=== PATIENT | female | born 1995 | race Caucasian/White ===

== ENCOUNTER 2017-04-05 15:06 | Emergency (ER) | payer MEDICAID, OTHER ==
[2017-04-05 15:16] VITALS: BP 135/71
--- NOTE | 2017-04-05 16:18 | ER Document Report ---
ED GI/ - General Chief Complaint: Vaginal Bleeding Stated Complaint: VAGINAL BLEEDING Time Seen by Provider: 04/05/17 15:43 Mode of Arrival: Ambulatory Information source: Patient Notes: 22-year-old female presents to ED for vaginal bleeding, vaginal discharge, and pelvic pain. She states she was seen in [place] on the night and was diagnosed with Trichomonas and treated with Flagyl. She was given 7 days worth of pills to take twice a day and she still has 4 pills left. She states she called the doctor in [place] and they told her to come to the emergency room where she was 7 vaginal discharge and bleeding. She is 16 weeks . TRAVEL OUTSIDE OF THE U.S. 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 Menstrual period history: Sexual history: STD exposure Associated symptoms: Vaginal discharge, Other - Vaginal bleeding pelvic pain and Exacerbated by: Denies Relieved by: Denies Similar symptoms previously: Yes Recently seen / treated by doctor: Yes - Related Data Allergies/Adverse Reactions: acetaminophen [From Vicodin] Adverse Reaction (Intermediate, Verified 12/01/15 11:30) Hives hydrocodone bitartrate [From Vicodin] Adverse Reaction (Intermediate, Verified 12/01/15 11:30) Hives Past Medical History - General Information source: Patient - Social History Smoking Status: Never Smoker Cigarette use (# per day): No Chew tobacco use (# tins/day): No Smoking Education Provided: No Frequency of alcohol use: None Drug Abuse: None Lives with: Spouse/Significant other Family History: Reviewed & Not Pertinent Patient has suicidal ideation: No - Past Medical History Cardiac Medical History: Reports: None Pulmonary Medical History: Reports: Hx Asthma EENT Medical History: Reports: None Neurological Medical History: Reports: None Endocrine Medical History: Reports: None Renal/ Medical History: Reports: Hx Pelvic Inflammatory Disease Malignancy Medical History: Reports: None GI Medical History: Reports: None Musculoskeltal Medical History: Reports None Skin Medical History: Reports None Psychiatric Medical History: Reports: None Traumatic Medical History: Reports: None Infectious Medical History: Reports: None Surgical Hx: Negative Past Surgical History: Reports: None - Immunizations Immunizations up to date: Yes Hx Diphtheria, Pertussis, Tetanus Vaccination: Yes Review of Systems - Review of Systems Constitutional: No symptoms reported EENT: No symptoms reported Cardiovascular: No symptoms reported Respiratory: No symptoms reported Gastrointestinal: No symptoms reported Genitourinary: No symptoms reported Female Genitourinary: , Vaginal discharge, Vaginal bleeding, Other - Pelvic pain Musculoskeletal: No symptoms reported Skin: No symptoms reported Hematologic/Lymphatic: No symptoms reported Neurological/Psychological: No symptoms reported -: Yes All other systems reviewed and negative Physical Exam - Vital signs Vitals: Temp Pulse Resp BP Pulse Ox 98.7 F 72 16 135/71 H 100 04/05/17 15:13 04/05/17 15:13 04/05/17 15:13 04/05/17 15:13 04/05/17 15:13 Interpretation: Normal - General General appearance: Appears well, Alert - HEENT Head: Normocephalic, Atraumatic Eyes: Normal Pupils: PERRL - Respiratory Respiratory status: No respiratory distress Chest status: Nontender Breath sounds: Normal Chest palpation: Normal - Cardiovascular Rhythm: Regular Heart sounds: Normal auscultation Murmur: No - Abdominal Inspection: Normal Distension: No distension Bowel sounds: Normal Tenderness: Nontender Organomegaly: No organomegaly - Genitourinary External exam: Normal Speculum exam: Cervix closed, Cervix open, Vaginal discharge Vaginal bleeding: Mild Bimanuel exam: Normal - Back Back: Normal, Nontender - Extremities General upper extremity: Normal inspection, Nontender, Normal color, Normal ROM , Normal temperature General lower extremity: Normal inspection, Nontender, Normal color, Normal ROM , Normal temperature, Normal weight bearing. No: Fareed's sign - Neurological Neuro grossly intact: Yes Cognition: Normal Orientation: AAOx4 Tyra Coma Scale Eye Opening: Spontaneous [place] Coma Scale Verbal: Oriented Tyra Coma Scale Motor: Obeys Commands Tyra Coma Scale Total: 15 Speech: Normal Motor strength normal: LUE, RUE, LLE, RLE Sensory: Normal - Psychological Associated symptoms: Normal affect, Normal mood - Skin Skin Temperature: Warm Skin Moisture: Dry Skin Color: Normal Course - Re-evaluation Re-evalutation: 04/05/17 16:31 Patient states she was seen by her [employer] on March 28 and was treated for trichomonas with Flagyl twice daily for 7 days. It is now the 17th and she still has 4 pills left. She states she has been taking them about every other day but once a day because she continues to forget them. She states she called [facility] and they told her to come to the emergency room to get rechecked out. She states when she was at the [employer] last week she had vaginal bleeding and they checked her blood and she was a negative and she was given a RhoGam shot. 04/05/17 22:02 At 1700 this patient left the floor according to the nurses. When I came out of another patient's room they tell me that the patient had left and they did not understand why. At 1730 when I got the results of her wet mount I called her home phone and talked with her. She stated that she asked 1 of the nurses how much longer it was going to be and and she states that there was so rude to her that she felt she had to get up and leave for her and her patient safety. I asked the patient to return to the ED so that I could get a heart tone and go over her test results with her. And she stated she would be right back. She did not return to the emergency room by 1830. I spoke with all the nurse and staff after this conversation and the staff stated that 1 of the nurses had walked by the room and she had asked them how long it would be and she told them that she was waiting for test results and it should not be much longer. They stated that no one was removed to this young lady and that it was several minutes later that the patient got up and stormed out of the emergency room not speaking to anyone or saying any reason for her leaving. Patient was told that her trichomonas was negative on this new test and that she needed to return to the emergency room for further instructions and have her heart tones during my conversation with her patient states that she was given a return to her primary [employer] tomorrow. - Vital Signs Vital signs: Temp Pulse Resp BP Pulse Ox 98.7 F 72 16 135/71 H 100 04/05/17 15:13 04/05/17 15:13 04/05/17 15:13 04/05/17 15:13 04/05/17 15:13 - Laboratory Laboratory results interpreted by me: 04/05/17 15:45 Urine Blood LARGE H Ur Leukocyte Esterase SMALL H Discharge - Discharge Clinical Impression: Vaginal bleeding before 22 weeks gestation Disposition: ELOPED
[2017-04-05 17:44] LABS: APPEARANCE,URINE CLEAR; BILIRUBIN,URINE NEGATIVE (NEGATIVE); GLUCOSE, URINE NEGATIVE (NEGATIVE); KETONES,URINE NEGATIVE (NEGATIVE); LEUKOCYTE ESTERASE,URINE SMALL (NEGATIVE); NITRITE,URINE NEGATIVE (NEGATIVE); PROTEIN,URINE NEGATIVE (NEGATIVE); URINE SPECIFIC GRAVITY 1.002; UROBILINOGEN,URINE NEGATIVE mg/dL (<2.0)
[2017-04-05 18:14] LABS: CHLAM PCR NOT DETECTED (NOT DETECT)
== END 2017-04-05 17:00 | disposition left against medical advice (07) ==
LOC: ER 15:06
DX: O46.92 Antepartum hemorrhage, unspecified, second trimester (principal); N89.8 Other specified noninflammatory disorders of vagina; R10.2 Pelvic and perineal pain; Z3A.16 16 weeks gestation of pregnancy
CPT/HCPCS: 81001; 87086; 87088; 87210; 87491; 87591; 99281

== ENCOUNTER 2017-04-16 14:14 | Emergency (ER) | payer OTHER ==
--- NOTE | 2017-04-16 14:40 | ER Document Report ---
ED GI/ - General Chief Complaint: Vaginal Bleeding Stated Complaint: POSSIBLE MISCARRIAGE Time Seen by Provider: 04/16/17 14:25 Notes: The patient is a 22-year-old female, , 17 weeks by prior ultrasound , presents with increased vaginal bleeding and lower abdominal cramping over the past 3 days. She saw her OB at [facility] yesterday and she was told that her fetus did not have a heart beat. She was scheduled for a D&C in [place] on Apr.26. However, today she delivered the fetus while being transported to the ED by EMS. Patient still having lower abdominal cramping and intermittent vaginal bleeding, but she denies syncope, nausea, vomiting, chest pain, shortness of breath, diarrhea, constipation or urinary symptoms. TRAVEL OUTSIDE OF THE U.S. IN LAST 30 DAYS: No - Related Data Allergies/Adverse Reactions: acetaminophen [From Vicodin] Adverse Reaction (Intermediate, Verified 12/01/15 11:30) Hives hydrocodone bitartrate [From Vicodin] Adverse Reaction (Intermediate, Verified 12/01/15 11:30) Hives Past Medical History - General Information source: Patient - Social History Smoking Status: Unknown if Ever Smoked Family History: Reviewed & Not Pertinent Pulmonary Medical History: Reports: Hx Asthma Renal/ Medical History: Reports: Hx Pelvic Inflammatory Disease. Denies: Hx Peritoneal Dialysis - Immunizations Immunizations up to date: Yes Hx Diphtheria, Pertussis, Tetanus Vaccination: Yes Review of Systems - Review of Systems Notes: REVIEW OF SYSTEMS: CONSTITUTIONAL: -fevers, -chills EENT: -eye pain, -difficulty swallowing, -nasal congestion CARDIOVASCULAR:-chest pain, -syncope. RESPIRATORY: -cough, -SOB GASTROINTESTINAL: +abdominal pain, - nausea, -vomiting, -diarrhea GENITOURINARY: -dysuria, -hematuria, +vaginal bleeding MUSCULOSKELETAL: -back pain, -neck pain SKIN: -rash or skin lesions. HEMATOLOGIC: -easy bruising or bleeding. LYMPHATIC: -swollen, enlarged glands. NEUROLOGICAL: -altered mental status or loss of consciousness, -headache, - neurologic symptoms PSYCHIATRIC: -anxiety, -depression. ALL OTHER SYSTEMS REVIEWED AND NEGATIVE. Physical Exam - Vital signs Vitals: Temp Pulse Resp BP Pulse Ox 98.6 F 67 16 131/62 H 100 04/16/17 14:22 04/16/17 14:22 04/16/17 14:22 04/16/17 14:22 04/16/17 14:22 - Notes Notes: PHYSICAL EXAMINATION: GENERAL: Well-appearing, well-nourished and in no acute distress. HEAD: Atraumatic, normocephalic. EYES: Pupils equal round and reactive to light, extraocular movements intact, sclera anicteric, conjunctiva are normal. ENT: nares patent, oropharynx clear without exudates. Moist mucous membranes. NECK: Normal range of motion, supple without lymphadenopathy LUNGS: Breath sounds clear to auscultation bilaterally and equal. No wheezes rales or rhonchi. HEART: Regular rate and rhythm without murmurs ABDOMEN: Soft, nontender, normoactive bowel sounds. No guarding, no rebound. No masses appreciated. : Fetus on bed with umbilical cord attached to intact placenta. No active bleeding. EXTREMITIES: Normal range of motion, no pitting or edema. No cyanosis. NEUROLOGICAL: Cranial nerves grossly intact. Normal speech, normal gait. Normal sensory and motor exams. PSYCH: Normal mood, normal affect. SKIN: Warm, Dry, normal turgor, no rashes or lesions noted. Course - Re-evaluation Re-evalutation: Patient presents in the ER with an active miscarriage of her 17 week fetus. She had a confirmed ultrasound yesterday at her OB that showed no heart tones. Patient is hemodynamically stable after 500 mL normal saline and she is having no active bleeding after she delivered the fetus and intact placenta. Spoke with Dr. Giraldo (OB) and she has no further recommendations other than following-up with her OB this week for a recheck. Given return precautions and she understands. 04/16/17 14:56 I spoke with family and they are declining chromosomal analysis at this time. They would like to take the confirmed demised fetus home. certificate filled out in case she would like to bring the fetus to a home for cremation. - Vital Signs Vital signs: Temp Pulse Resp BP Pulse Ox 98.6 F 68 16 122/49 L 100 04/16/17 14:22 04/16/17 16:43 04/16/17 16:43 04/16/17 16:43 04/16/17 16:43 Discharge - Discharge Clinical Impression: Complete miscarriage Condition: Stable Disposition: HOME, SELF-CARE Additional Instructions: A small amount of vaginal bleeding and cramping is normal at this time. If he continues to have worsening vaginal bleeding, lightheadedness or any other concerns, return to the ER. Follow-up with your OB this week to have your symptoms rechecked. Motrin or Advil for pain and Keaau for severe pain. FOLLOW-UP CARE: If you have been referred to a physician for follow-up care, call the physician s office for an appointment as you were instructed or within the next two days. If you experience worsening or a significant change in your symptoms (very heavy bleeding with large clots of blood, passage of tissue, more severe abdominal / pelvic pain or cramping, feeling faint or severe weakness, fever, etc.), notify the physician immediately or return to the Emergency Department at any time for re-evaluation. OBSTETRIC-GYNECOLOGIC (OB-VESSEL SLAGMAN) PHYSICIANS IN [place]: The [facility] [address] [place], [place] [phone] [facility] [address] [place] [address] [phone] For active duty and dependents diagnosed with a threatened or miscarriage, you should follow up in the following manner: Standard patients who have a local civilian provider should follow up with that provider. Patients of the Family Practice Clinic should call your Team Nurse at 8: 00 am the following morning for further instructions. If you are neither a Standard patient nor a patient of the Family Practice Clinic, you should follow up at the [facility] ([facility]) . Patients already enrolled in the [facility] OB Clinic, Prime patients not assigned to the Family Practice Clinic, and Active Duty patients not assigned to Family Practice Clinic should report to the [facility] Lab at 8:00 am the next morning that the [facility] OB Clinic is open and then you will be seen in the OB Clinic at 11:00 am. Prescriptions: Hydrocodone/Acetaminophen [Keaau 5-325 mg Tablet] 1 tab PO Q6H PRN #8 tablet PRN Reason: Oxycodone HCl/Acetaminophen [Percocet 5-325 mg Tablet] 1 - 2 tab PO Q4H PRN #8 tablet PRN Reason: Referrals: TANNER GIRALDO MD [ACTIVE STAFF] - Follow up as needed
[2017-04-16] MEDS ORDERED: HYDROCODONE/ACETAMINOPHEN 5-325 MG TABLET PO ONE (16:09)
[2017-04-16] MEDS ORDERED: OXYCODONE-ACETAMINOPHEN 5-325 MG TABLET PO ONE (16:17)
[2017-04-16 16:45] VITALS: BP 122/49
== END 2017-04-16 16:45 | disposition home or self-care (01) ==
LOC: ER 14:14
DX: O03.9 Complete or unspecified spontaneous abortion without complication (principal); O46.92 Antepartum hemorrhage, unspecified, second trimester; R10.30 Lower abdominal pain, unspecified; Z3A.17 17 weeks gestation of pregnancy
CPT/HCPCS: 99284

== ENCOUNTER 2017-06-18 16:25 | Emergency (ER) | payer OTHER ==
[2017-06-18 16:30] VITALS: BP 121/78
--- NOTE | 2017-06-18 17:19 | ER Document Report ---
HPI - HPI Patient complains to provider of: Chlamydia exposure, urinary frequency Onset: Last week Onset/Duration: Persistent Quality of pain: Achy Pain Level: 1 Context: Patient presents complaining of exposure to chlamydia and would like to be treated. Patient also reports urinary frequency although denies any dysuria. Patient denies any vaginal bleeding or discharge. Patient denies any fever. Associated Symptoms: Other - Concerned about STD Exacerbated by: Denies Relieved by: Denies Similar symptoms previously: No Recently seen / treated by doctor: No - ROS ROS below otherwise negative: Yes Systems Reviewed and Negative: Yes All other systems reviewed and negative - CONSTITUTIONAL Constitutional: DENIES: Fever, Chills - GASTROINTESTINAL Gastrointestinal: DENIES: Abdominal Pain, Nausea, Patient vomiting - URINARY Urinary: REPORTS: Frequency. DENIES: Dysuria - REPRODUCTIVE Reproductive: DENIES: :, Abnormal bleeding / discharge - MUSCULOSKELETAL Musculoskeletal: DENIES: Back Pain - DERM Skin Color: Normal Skin Problems: None Past Medical History - General Information source: Patient - Social History Smoking Status: Never Smoker Frequency of alcohol use: None Drug Abuse: None Occupation: None Family History: Reviewed & Not Pertinent Pulmonary Medical History: Reports: Hx Asthma Renal/ Medical History: Reports: Hx Pelvic Inflammatory Disease. Denies: Hx Peritoneal Dialysis GI Medical History: Reports: Hx Crohn's Disease Surgical Hx: Negative - Immunizations Immunizations up to date: Yes Hx Diphtheria, Pertussis, Tetanus Vaccination: Yes Vertical Provider Document - CONSTITUTIONAL Agree With Documented VS: Yes Exam Limitations: No Limitations General Appearance: WD/WN, No Apparent Distress - INFECTION CONTROL TRAVEL OUTSIDE OF THE [place].S. IN LAST 30 DAYS: No - HEENT HEENT: Atraumatic, Normocephalic - NECK Neck: Normal Inspection - RESPIRATORY Respiratory: Breath Sounds Normal, No Respiratory Distress O2 Sat by Pulse Oximetry: 100 - CARDIOVASCULAR Cardiovascular: Regular Rate, Regular Rhythm - GI/ABDOMEN Gastrointestinal: Abdomen Soft, Abdomen Non-Tender, No Organomegaly, Normal Bowel Sounds - REPRODUCTIVE Female Genitalia: Normal Inspection. negative: CMT, Adnexal Pain-Right, Adnexal Pain-Left Notes: no vaginal discharge - BACK Back: Normal Inspection. 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 Patient states she has been here 4 hours in wants to leave. Patient does not want to wait for urinalysis results. 06/18/17 19:50 Provider called patient to advise her of urinalysis results. Patient advised that urine culture will be ordered and that we will call if she needs any different treatment. - Vital Signs Vital signs: Temp Pulse Resp BP Pulse Ox 98.5 F 75 20 121/78 100 06/18/17 16:29 06/18/17 16:29 06/18/17 16:29 06/18/17 16:29 06/18/17 16:29 - Laboratory Laboratory results interpreted by me: 06/18/17 20:41 Labs- Entire Visit 06/18/17 06/18/17 06/18/17 18:05 18:05 18:05 Urine Color YELLOW Urine Appearance SLIGHTLY-CLOUDY Urine pH 5.0 Ur Specific [place] 1.030 Urine Protein 30 H Urine Glucose (UA) NEGATIVE Urine Ketones TRACE H Urine Blood NEGATIVE Urine Nitrite NEGATIVE Urine Bilirubin NEGATIVE Urine Urobilinogen 2.0 H Ur Leukocyte Esterase TRACE H Urine WBC (Auto) 6 Urine RBC (Auto) 1 Urine Bacteria (Auto) TRACE Squamous Epi Cells Auto 6 Urine Mucus (Auto) FEW Urine Ascorbic Acid NEGATIVE Urine HCG, Qual NEGATIVE Trichomonas (Wet Prep) NO TRICHOMONAS SEEN Vaginal WBC RARE WBCS SEEN Vaginal Yeast NO YEAST SEEN Chlamydia DNA (PCR) NOT DETECTED N.gonorrhoeae DNA (PCR) NOT DETECTED Discharge - Discharge Clinical Impression: Exposure to chlamydia, Urinary frequency Disposition: ELOPED
[2017-06-18] MEDS ORDERED: AZITHROMYCIN 250 MG TABLET PO ONE (18:08)
[2017-06-18] MEDS ORDERED: CEFTRIAXONE INJ 250 MG VIAL IM ONE (18:08)
[2017-06-18] MEDS ORDERED: LIDOCAINE 1% INJ-PF (10 MG/ML) 30 ML SDV INJ ONE (18:08)
[2017-06-18 18:49] LABS: APPEARANCE,URINE SLIGHTLY-CLOUDY; BILIRUBIN,URINE NEGATIVE (NEGATIVE); GLUCOSE, URINE NEGATIVE (NEGATIVE); KETONES,URINE TRACE mg/dL (NEGATIVE); LEUKOCYTE ESTERASE,URINE TRACE (NEGATIVE); NITRITE,URINE NEGATIVE (NEGATIVE); PROTEIN,URINE 30 mg/dL (NEGATIVE)
== END 2017-06-18 19:12 | disposition left against medical advice (07) ==
LOC: ER 16:25
DX: Z20.2 Contact with and (suspected) exposure to infections with a predominantly sexual mode of transmission (principal); R35.0 Frequency of micturition
CPT/HCPCS: 99281; 96372; 87086; 87210; 81025; 87088; 81001; 87186; 87491; 87591; J3490; J0696

== ENCOUNTER 2017-09-22 14:20 | Emergency (ER) | payer OTHER ==
--- NOTE | 2017-09-22 14:42 | ER Document Report ---
ED Medical Screen (RME) - General Chief Complaint: Vaginal Bleeding Stated Complaint: VAGINAL BLEEDING<7 WKS Time Seen by Provider: 09/22/17 14:37 Notes: RME DISCLOSURE I have seen this patient as part of a Rapid Medical Evaluation and, if applicable, placed any initially appropriate orders. The patient will be seen and fully evaluated, including a full history and physical exam, by a provider ( in Main ED or Fast Track) when a room becomes available. 22-year-old female approximately 7 weeks gestation here with complaints of vaginal bleeding that she describes as spotting and she had noticed earlier this morning when she wiped after using the bathroom. She has also had some lower abdominal cramping but she states it is pretty minimal. No fevers or chills. She has a history of miscarriage late last year and reports that her blood type is Rh-. EXAM No abdominal tenderness to palpation TRAVEL OUTSIDE OF THE U.S. IN LAST 30 DAYS: No - Related Data Allergies/Adverse Reactions: acetaminophen [From Vicodin] Adverse Reaction (Intermediate, Verified 06/18/17 16:27) Hives hydrocodone bitartrate [From Vicodin] Adverse Reaction (Intermediate, Verified 06/18/17 16:27) Hives Past Medical History Pulmonary Medical History: Reports: Hx Asthma Renal/ Medical History: Reports: Hx Pelvic Inflammatory Disease. Denies: Hx Peritoneal Dialysis GI Medical History: Reports: Hx Crohn's Disease - Immunizations Immunizations up to date: Yes Hx Diphtheria, Pertussis, Tetanus Vaccination: Yes
[2017-09-22 14:45] LABS: APPEARANCE,URINE CLEAR; BILIRUBIN,URINE NEGATIVE (NEGATIVE); COLOR,URINE STRAW; GLUCOSE, URINE NEGATIVE (NEGATIVE); KETONES,URINE NEGATIVE (NEGATIVE); LEUKOCYTE ESTERASE,URINE NEGATIVE (NEGATIVE); NITRITE,URINE NEGATIVE (NEGATIVE); PROTEIN,URINE NEGATIVE (NEGATIVE); URINE SPECIFIC GRAVITY 1.001; UROBILINOGEN,URINE NEGATIVE mg/dL (<2.0)
--- NOTE | 2017-09-22 16:58 | RADIOLOGY REPORT (SQ) ---
EXAM DESCRIPTION: U/S OB TRANSVAGINAL W/O DOP COMPLETED DATE/TIME: 09/22/2017 4:38 pm REASON FOR STUDY: 7 wks bleeding; eval miscarriage ectopic COMPARISON: None. TECHNIQUE: Transvaginal static and realtime grayscale images acquired of the pelvis. Additional christie cted spectral and color Doppler images recorded. All images stored on PACs. bHCG: Not ordered. LIMITATIONS: None. FINDINGS: There is a questionable gestational sac that may suggest gestation of 5 weeks 0 days. Que stionable yolk sac. pole was not seen. No heart motion is evident. UTERUS: 7 x 5 x 3.4 cm. It is possible that this represents septate uterus. CERVICAL LENGTH: 2.6 cm. Closed. RIGHT ADNEXA: There is a 1.3 x 1.3 by 0.8 cm complex area associated with the right ovary. The ovary measures 2.4 x 1.7 x 1.9 cm. No adnexal free fluid. No adnexal masses. LEFT ADNEXA: Normal ovary with normal vascular flow. The ovary measures 2.4 x 2.2 x 1 cm. No adnexal free fluid. No adnexal masses. FREE FLUID: None. OTHER: No other significant finding. IMPRESSION: 1. Questionable early gestational sac of 5 weeks 0 days. This correlate with an estima ann marie date of delivery of 05/25/2018. Follow-up as clinically indicated. 2. Possible septate uterus. 3. There is a small complex cyst on the right ovary. Trimester of : First - 0 to 13 weeks. TECHNICAL DOCUMENTATION: JOB ID: [id number] [employer]- All Rights Reserved Reading location - IP/workstation name: [email or web address]
--- NOTE | 2017-09-22 17:56 | ER Document Report ---
ED General - General Chief Complaint: Vaginal Bleeding Stated Complaint: VAGINAL BLEEDING<7 WKS Time Seen by Provider: 09/22/17 14:37 Mode of Arrival: Ambulatory Information source: Patient Notes: 22-year-old female 2 para 0, last normal menstrual period August 08, comes into the emergency room with light but vaginal bleeding. Patient states she had some blood on the tissue when she wiped. She denies any abdominal pain or cramping. Her first ended up with a miscarriage at 17 weeks. Type: Rh- TRAVEL OUTSIDE OF THE [place] IN LAST 30 DAYS: No - HPI Onset: Just prior to arrival Onset/Duration: Sudden Quality of pain: No pain Severity: None Pain Level: Denies Associated symptoms: denies: Chest pain, Fever, Shortness of breath Exacerbated by: Denies Relieved by: Denies Similar symptoms previously: Yes Recently seen / treated by doctor: No - Related Data Allergies/Adverse Reactions: acetaminophen [From Vicodin] Adverse Reaction (Intermediate, Verified 06/18/17 16:27) Hives hydrocodone bitartrate [From Vicodin] Adverse Reaction (Intermediate, Verified 06/18/17 16:27) Hives Past Medical History - General Information source: Patient - Social History Smoking Status: Never Smoker Cigarette use (# per day): No Chew tobacco use (# tins/day): No Frequency of alcohol use: None Drug Abuse: None Lives with: Spouse/Significant other Family History: Reviewed & Not Pertinent Patient has suicidal ideation: No Patient has homicidal ideation: No - Past Medical History Cardiac Medical History: Reports: None Pulmonary Medical History: Reports: Hx Asthma Endocrine Medical History: Reports: None Renal/ Medical History: Reports: Hx Pelvic Inflammatory Disease. Denies: Hx Peritoneal Dialysis GI Medical History: Reports: Hx Crohn's Disease Surgical Hx: Negative - Immunizations Immunizations up to date: Yes Hx Diphtheria, Pertussis, Tetanus Vaccination: Yes Review of Systems - Review of Systems Constitutional: denies: Chills, Fever EENT: No symptoms reported Cardiovascular: No symptoms reported Respiratory: No symptoms reported Gastrointestinal: No symptoms reported Genitourinary: See HPI Female Genitourinary: See HPI Musculoskeletal: No symptoms reported Skin: No symptoms reported Hematologic/Lymphatic: No symptoms reported Neurological/Psychological: No symptoms reported Physical Exam - Vital signs Vitals: Temp Pulse Resp BP Pulse Ox 98.6 F 73 18 108/61 100 03/06/18 18:07 09/22/17 18:07 09/22/17 18:07 09/22/17 18:07 09/22/17 18:07 Notes: Physical exam: GENERAL: An-year-old female, alert and oriented 3, no acute distress HEAD: Atraumatic, normocephalic. EYES: Pupils equal round and reactive to light, extraocular movements intact, sclera anicteric, conjunctiva are normal. ENT: TMs normal, nares patent, oropharynx clear without exudates. Moist mucous membranes. NECK: Normal range of motion, supple without obvious mass or JVD. LUNGS: Breath sounds clear to auscultation bilaterally and equal. No wheezes rales or rhonchi. HEART: Regular rate and rhythm without murmurs, rubs or gallops. ABDOMEN: Soft, normoactive bowel sounds. No tenderness to palpation. No guarding, no rebound. No masses appreciated. EXTREMITIES: Normal range of motion, no pitting or edema. No clubbing or cyanosis. NEUROLOGICAL: Cranial nerves II through XII grossly intact. Normal speech, moving all extremities. PSYCH: Normal mood, normal affect. SKIN: Warm, Dry, normal turgor, no rashes or lesions noted. Course - Vital Signs Vital signs: Temp Pulse Resp BP Pulse Ox 98.6 F 73 18 108/61 100 09/22/17 18:07 09/22/17 18:07 09/22/17 18:07 09/22/17 18:07 09/22/17 18:07 - Laboratory Laboratory results interpreted by me: 09/22/17 09/22/17 09/22/17 14:25 15:13 15:13 Serum HCG, Qual POSITIVE H Beta HCG, Quant 814.89 H Urine Blood MODERATE H Urine HCG, Qual POSITIVE H - Diagnostic Test Radiology reviewed: Image reviewed, Reports reviewed - Ultrasound shows possible early gestational sac at 5 weeks. Discharge - Discharge Clinical Impression: Vaginal bleeding in early Condition: Stable Disposition: HOME, SELF-CARE Instructions: Bleeding During Early ([facility]), Rhogam ([facility]) Additional Instructions: The ultrasound shows a possible early (5 weeks gestation) . It is simply too early to tell at this point with ultrasound or blood work (the baby level is low at this point). It is possible that you are having a miscarriage. But is also positive you are having a normal . I would take it easy over the next few days. You can take Tylenol for any cramping. Do not take aspirin, ibuprofen, Aleve. [facility]. Return to the emergency room for worsening pain or bleeding. You did get a RhoGam shot today. Forms: Return to Work Referrals: RODERICK BERMAN MD [ACTIVE STAFF] - Follow up in 3-5 days (This is the number for his health care clinic: Follow-up next week)
[2017-09-22 18:09] VITALS: BP 108/61
== END 2017-09-22 18:09 | disposition home or self-care (01) ==
LOC: ER 14:20
DX: O20.9 Hemorrhage in early pregnancy, unspecified (principal); Z3A.01 Less than 8 weeks gestation of pregnancy
CPT/HCPCS: 99284; 86900; 86901; 36415; 86850; 84702; 84703; 81025; 81001; 76817; J2790

== ENCOUNTER → 2017-10-26 | Outpatient (CLI) | payer OTHER ==
--- NOTE | 2017-10-26 16:26 | RADIOLOGY REPORT (SQ) ---
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 She was told to expect cramping du ring the procedure, and possible spotting post procedure. PROCEDURE: Under direct visual inspection, the cervix was cannulated with the hysterosalpingogram cat heter and contrast injected. TECHNIQUE: Temporal fluoroscopic images acquired during the procedure stored to PACS. FLUOROSCOPY TIME: Less than 10 seconds 8 digital images saved to PACS. LIMITATIONS: None. FINDINGS: UTERUS: No identified anomalies. No synechia. RIGHT ADNEXA: Normal size fallopian tube. Free spill of contrast into the peritoneal cavity. LEFT ADNEXA: Normal size fallopian tube. Free spill of contrast into the peritoneal cavity. POST PROCEDURE: The patient tolerated the procedure with no adverse effects. IMPRESSION: NORMAL HYSTEROSALPINGOGRAM. COMMENT: Quality ID 145: Final reports for procedures using fluoroscopy that document radiation exp osure indices, or exposure time and number of fluorographic images (if radiation exposure indices are not available) TECHNICAL DOCUMENTATION: JOB ID: [id number] [employer]- All Rights Reserved Reading location - IP/workstation name: [email or web address]
--- NOTE | 2017-10-26 16:26 | RADIOLOGY REPORT (SQ) ---
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 She was told to expect cramping du ring the procedure, and possible spotting post procedure. PROCEDURE: Under direct visual inspection, the cervix was cannulated with the hysterosalpingogram cat heter and contrast injected. TECHNIQUE: Temporal fluoroscopic images acquired during the procedure stored to PACS. FLUOROSCOPY TIME: Less than 10 seconds 8 digital images saved to PACS. LIMITATIONS: None. FINDINGS: UTERUS: No identified anomalies. No synechia. RIGHT ADNEXA: Normal size fallopian tube. Free spill of contrast into the peritoneal cavity. LEFT ADNEXA: Normal size fallopian tube. Free spill of contrast into the peritoneal cavity. POST PROCEDURE: The patient tolerated the procedure with no adverse effects. IMPRESSION: NORMAL HYSTEROSALPINGOGRAM. COMMENT: Quality ID 145: Final reports for procedures using fluoroscopy that document radiation exp osure indices, or exposure time and number of fluorographic images (if radiation exposure indices are not available) TECHNICAL DOCUMENTATION: JOB ID: [id number] [employer]- All Rights Reserved Reading location - IP/workstation name: [email or web address]
== END ==
LOC: RAD 15:05
PROVIDERS: ATTEND Obstetrics & Gynecology Gynecology
DX: Q51.9 Congenital malformation of uterus and cervix, unspecified (principal)
CPT/HCPCS: 58340; 74740

== ENCOUNTER 2017-11-22 10:01 | Emergency (ER) | payer OTHER ==
--- NOTE | 2017-11-22 10:23 | ER Document Report ---
HPI - HPI Patient complains to provider of: pelvic pain Onset: Other - october Pain Level: 2 Context: 22 yo female c/o pelvic pain (ache), nausea especially with eating since October 26, weight loss, diarrhea yesterday. Vaginal discharge x 2 days no odor. 17 week miscarriage 04-05, 5 week miscarriage in September. Bled after nl hysterosalpingogram october 26 (no septate uterus), none since. Associated Symptoms: Other - ovesee ab Exacerbated by: Food Relieved by: Denies - ROS ROS below otherwise negative: Yes Systems Reviewed and Negative: Yes All other systems reviewed and negative - REPRODUCTIVE Reproductive: DENIES: : Past Medical History - General Information source: Patient - Social History Smoking Status: Current Every Day Smoker Frequency of alcohol use: None Drug Abuse: None Lives with: Family Family History: Reviewed & Not Pertinent Pulmonary Medical History: Reports: Hx Asthma Renal/ Medical History: Reports: Hx Pelvic Inflammatory Disease. Denies: Hx Peritoneal Dialysis GI Medical History: Reports: Hx Crohn's Disease - Immunizations Immunizations up to date: Yes Hx Diphtheria, Pertussis, Tetanus Vaccination: Yes Vertical Provider Document - CONSTITUTIONAL Agree With Documented VS: Yes Exam Limitations: No Limitations - INFECTION CONTROL TRAVEL OUTSIDE OF THE [place] IN LAST 30 DAYS: No - HEENT HEENT: negative: Pharyngeal Erythema Notes: angular chelitis - NECK Neck: Supple. negative: Lymphadenopathy-Left, Lymphadenopathy-Right - RESPIRATORY Respiratory: Breath Sounds Normal, No Respiratory Distress - CARDIOVASCULAR Cardiovascular: Regular Rate, Regular Rhythm - GI/ABDOMEN Gastrointestinal: Abdomen Soft, Abdomen Tender - suprapubic - BACK Back: Normal Inspection. negative: CVA Tenderness-Right, CVA Tenderness-Left - MUSCULOSKELETAL/EXTREMETIES Musculoskeletal/Extremeties: MAEW - NEURO Level of Consciousness: Awake - DERM Integumentary: No Rash Course - Re-evaluation Re-evalutation: 11/22/17 15:31 pt called she can't take NSAIDs because of crohn's flare. I am writing for some oxycodone and zofran, she has some stomach upset probably from the azithromycin. STD cultures are negative. - Laboratory Result Diagrams: 11/22/17 10:48 11/22/17 10:48 Discharge - Discharge Clinical Impression: pelvic pain, Bacterial vaginosis Condition: Good Disposition: HOME, SELF-CARE Instructions: Azithromycin ([facility]), Ibuprofen (General) ([facility]), Metronidazole ([facility] ), Pelvic Pain ([facility]), Rocephin ([facility]), Vaginosis, Bacterial ([facility]) Additional Instructions: call me in 2 hours for the STD culture results you were tx for possible gonorrhea and possible chlamydia to er if worse see obgyn if persists Prescriptions: Ondansetron [Zofran Odt 4 mg Tablet] 1 - 2 tab PO Q4HP PRN #30 tab.rapdis PRN Reason: Ibuprofen [Motrin 600 mg Tablet] 600 mg PO Q8HP PRN #30 tablet PRN Reason: Metronidazole 500 mg PO BID #14 tablet Oxycodone HCl/Acetaminophen [Percocet 5-325 mg Tablet] 1 tab PO ASDIR PRN #15 tablet PRN Reason: Referrals: LOPEZ KOLB MD [ACTIVE STAFF] - Follow up as needed
[2017-11-22 10:59] LABS: BACTERIA (WET MOUNT) 3+ BACTERIA SEEN; EPITHELIALS (WET MOUNT) 3+ EPITHELIALS SEEN; RBCS (WET MOUNT) RARE RBCS SEEN; T.VAGINALIS (WET MOUNT) NO TRICHOMONAS SEEN; WBCS (WET MOUNT) FEW WBCS SEEN; YEAST (WET MOUNT) NO YEAST SEEN
[2017-11-22 11:12] LABS: APPEARANCE,URINE SLIGHTLY-CLOUDY; BILIRUBIN,URINE NEGATIVE (NEGATIVE); COLOR,URINE YELLOW; GLUCOSE, URINE NEGATIVE (NEGATIVE); KETONES,URINE NEGATIVE (NEGATIVE); LEUKOCYTE ESTERASE,URINE TRACE (NEGATIVE); NITRITE,URINE NEGATIVE (NEGATIVE); PROTEIN,URINE NEGATIVE (NEGATIVE); URINE SPECIFIC GRAVITY 1.019; UROBILINOGEN,URINE NEGATIVE mg/dL (<2.0)
[2017-11-22 11:17] LABS: ABSOLUTE EOSINOPHILS # (AUTO) 0.1 10^3/uL (0.0-0.6); ABSOLUTE LYMPHOCYTES (AUTO) 2.1 10^3/uL (0.5-4.7); ABSOLUTE MONOCYTES (AUTO) 0.4 10^3/uL (0.1-1.4); ABSOLUTE NEUT (AUTO) 3.5 10^3/uL (1.7-8.2); BASOPHILS % (AUTO) 0.2 % (0-2); EOSINOPHILS % (AUTO) 1.3 % (0-6); HEMATOCRIT 37.4 % (36.0-47.0); HEMOGLOBIN 12.4 g/dL (12.0-15.5); MEAN CORPUSCULAR HEMOGLOBIN 24.9 pg (27.0-33.4); MEAN CORPUSCULAR HGB CONC 33.1 g/dL (32.0-36.0); MEAN CORPUSCULAR VOLUME 75 fl (80-97); PLATELET COUNT 288 10^3/uL (150-450); RED BLOOD COUNT 4.97 10^6/uL (3.72-5.28); RED CELL DISTRIBUTION WIDTH 20.2 % (11.5-14.0); SEGMENTED NEUTROPHILS % (AUTO) 57.5 % (42-78); TOTAL CELLS COUNTED % (AUTO) 100 %; WHITE BLOOD COUNT 6.1 10^3/uL (4.0-10.5)
[2017-11-22 11:33] LABS: ALANINE AMINOTRANSFERASE 21 U/L (9-52); ALBUMIN 4.7 g/dL (3.5-5.0); ALKALINE PHOSPHATASE 43 U/L (38-126); ANION GAP 14 (5-19); ASPARTATE AMINO TRANSFERASE 19 U/L (14-36); BILIRUBIN,DIRECT 0.1 mg/dL (0.0-0.4); BILIRUBIN,TOTAL 0.7 mg/dL (0.2-1.3); BLOOD UREA NITROGEN 8 mg/dL (7-20); CALCIUM 10.3 mg/dL (8.4-10.2); CARBON DIOXIDE 25 mmol/L (22-30); CHLORIDE 107 mmol/L (98-107); GLUCOSE 88 mg/dL (75-110); POTASSIUM 4.3 mmol/L (3.6-5.0); TOTAL PROTEIN 7.8 g/dL (6.3-8.2)
[2017-11-22 12:41] LABS: CHLAM PCR NOT DETECTED (NOT DETECT); GON PCR NOT DETECTED (NOT DETECT)
[2017-11-22] MEDS ORDERED: AZITHROMYCIN 250 MG TABLET PO ONE (12:43)
[2017-11-22] MEDS ORDERED: ONDANSETRON 4 MG TAB.RAPDIS PO ONE (12:43)
[2017-11-22] MEDS ORDERED: CEFTRIAXONE INJ 250 MG VIAL IM ONE (12:43)
[2017-11-22] MEDS ORDERED: LIDOCAINE 1% INJ-PF (10 MG/ML) 30 ML SDV INJ ONE (12:43)
[2017-11-22 13:27] VITALS: BP 120/60
== END 2017-11-22 13:30 | disposition home or self-care (01) ==
LOC: ER 10:01
DX: N76.0 Acute vaginitis (principal); B96.89 Other specified bacterial agents as the cause of diseases classified elsewhere; R10.2 Pelvic and perineal pain; F17.200 Nicotine dependence, unspecified, uncomplicated
CPT/HCPCS: 99284; 36415; 87086; 87210; 84703; 85025; 87088; 80053; 81001; 87186; 87491; 87591; S0119; J3490; J0696

== ENCOUNTER 2017-12-07 00:15 | Emergency (ER) | payer OTHER ==
[2017-12-07 00:38] VITALS: BP 122/72
--- NOTE | 2017-12-07 01:03 | RADIOLOGY REPORT (SQ) ---
EXAM DESCRIPTION: Right wrist, 3 views CLINICAL HISTORY: R wrist injury COMPARISON: None. FINDINGS: 3 views of the right wrist. No acute fracture or dislocation. Normal osseous mineralization. Radius, capitate, and lunate have appropriate alignment. No radiopaque foreign bodies. IMPRESSION: No acute fracture or dislocation.
--- NOTE | 2017-12-07 01:32 | ER Document Report ---
ED General - General Chief Complaint: Wrist Injury Stated Complaint: WRIST INJURY Time Seen by Provider: 12/07/17 00:36 Mode of Arrival: Ambulatory Information source: Patient TRAVEL OUTSIDE OF THE [place] IN LAST 30 DAYS: No - HPI Notes: Patient is a 22-year-old female presents emergency department with report that she became angry and slammed her right dominant hand and wrist up against a door sustaining contusion to the wrist with pain. The patient states she struck her hand against the door over the course of the last 3 days. She denies any numbness or paresthesia or other injury. She reports no self-harm ideation, and states she was just angry at the time. The patient reports no elbow pain or shoulder pain or other musculoskeletal complaint or injury. - Related Data Allergies/Adverse Reactions: acetaminophen [From Vicodin] Adverse Reaction (Intermediate, Verified 12/07/17 00:17) Hives NSAIDS (Non-Steroidal Anti-Inflamma Adverse Reaction (Unknown, Verified 00:17) Past Medical History - General Information source: Patient - Social History Smoking Status: Current Every Day Smoker Chew tobacco use (# tins/day): No Frequency of alcohol use: Occasional Drug Abuse: None Lives with: Friend Family History: Reviewed & Not Pertinent Patient has suicidal ideation: No Patient has homicidal ideation: No Pulmonary Medical History: Reports: Hx Asthma Renal/ Medical History: Reports: Hx Pelvic Inflammatory Disease. Denies: Hx Peritoneal Dialysis GI Medical History: Reports: Hx Crohn's Disease - Immunizations Immunizations up to date: Yes Hx Diphtheria, Pertussis, Tetanus Vaccination: Yes Review of Systems - Review of Systems -: Yes All other systems reviewed and negative Physical Exam - Vital signs Vitals: Temp Pulse Resp BP Pulse Ox 98.5 F 72 18 122/72 95 12/07/17 00:37 12/07/17 00:37 12/07/17 00:37 12/07/17 00:37 12/07/17 00:37 - Notes Notes: Examination of the patient's right upper extremity shows a nonfocal exam with exception of the patient's right wrist where the patient has pain and contusion along the distal ulnar region. There is no crepitance or bony deformity. There is full range of motion. There is no proximal erythema or adenopathy noted. No elbow pain. No proximal erythema or adenopathy. Tendon function is intact. No pain over the scaphoid region. Course - Re-evaluation Re-evalutation: 12/07/17 01:39 X-ray was negative. Right wrist cockup splint was placed. Patient was given tramadol. Discussion was undertaken at length with the patient about anger management techniques to prevent her from hurting herself. Orthopedic follow- up was urged as needed for continued pain. No obvious evidence for fracture or neurovascular compromise or tendon injury. - Vital Signs Vital signs: Temp Pulse Resp BP Pulse Ox 98.5 F 72 18 122/72 95 12/07/17 00:37 12/07/17 00:37 12/07/17 00:37 12/07/17 00:37 12/07/17 00:37 Discharge - Discharge Clinical Impression: Right wrist sprain Qualifiers: Encounter type: initial encounter Qualified Code(s): S63.501A - Unspecified sprain of right wrist, initial encounter Contusion Qualifiers: Encounter type: initial encounter Contusion area: wrist Laterality: right Qualified Code(s): S60.211A - Contusion of right wrist, initial encounter Condition: Stable Disposition: HOME, SELF-CARE Instructions: Wrist Sprain ([facility]), Contusion ([facility]) Additional Instructions: Elevate. Limit motion as needed for pain. Prescriptions: Tramadol HCl 50 mg PO Q4HP PRN #20 tablet PRN Reason: Referrals: BLUE AGUILAR DO [ACTIVE STAFF] - Follow up as needed
[2017-12-07] MEDS ORDERED: TRAMADOL HCL 50 MG TABLET PO ONE (01:33)
== END 2017-12-07 02:10 | disposition home or self-care (01) ==
LOC: ER 00:15
DX: S63.501A Unspecified sprain of right wrist, initial encounter (principal); W22.8XXA Striking against or struck by other objects, initial encounter; F17.200 Nicotine dependence, unspecified, uncomplicated; J45.909 Unspecified asthma, uncomplicated
CPT/HCPCS: 99283; 73110; L3908

== ENCOUNTER 2018-06-21 13:39 | Emergency (ER) | payer OTHER ==
--- NOTE | 2018-06-21 15:36 | ER Document Report ---
ED Flu Like - General Chief Complaint: Flu Symptoms Stated Complaint: FLU SYMPTOMS Time Seen by Provider: 06/21/18 14:33 Mode of Arrival: Ambulatory Information source: Patient Notes: 23-year-old female presented to ED for cough cold congestion's runny nose and short of breath. She is 30 weeks . She states she was very anxious because she lost a baby in March and now she was short of breath when she laid down. Patient states this is her second with no live births. She states her has 4 sons. TRAVEL OUTSIDE OF THE [place] IN LAST 30 DAYS: No - HPI Onset: Last week Timing/Duration: Intermittent Quality of pain: Achy Severity: Moderate Pain Level: 2 Associated symptoms: Body/muscle aches, Nonproductive cough, Rhinnorhea, Sinus pain/drainage Similar symptoms previously: Yes Recently seen / treated by doctor: No - Related Data Allergies/Adverse Reactions: acetaminophen [From Vicodin] Adverse Reaction (Intermediate, Verified 12/07/17 00:17) Hives NSAIDS (Non-Steroidal Anti-Inflamma Adverse Reaction (Unknown, Verified 00:17) Past Medical History - General Information source: Patient - Social History Smoking Status: Never Smoker Cigarette use (# per day): No Chew tobacco use (# tins/day): No Smoking Education Provided: No Frequency of alcohol use: None Lives with: Family Family History: Reviewed & Not Pertinent Patient has suicidal ideation: No Patient has homicidal ideation: No - Medical History Medical History: Other - Past Medical History Cardiac Medical History: Reports: None Pulmonary Medical History: Reports: Hx Asthma EENT Medical History: Reports: None Neurological Medical History: Reports: None Endocrine Medical History: Reports: None Renal/ Medical History: Reports: Hx Pelvic Inflammatory Disease Malignancy Medical History: Reports: None GI Medical History: Reports: Hx Crohn's Disease Musculoskeletal Medical History: Reports None Skin Medical History: Reports None Psychiatric Medical History: Reports: None Traumatic Medical History: Reports: None Infectious Medical History: Reports: None Surgical Hx: Negative Past Surgical History: Reports: None - Immunizations Immunizations up to date: Yes Hx Diphtheria, Pertussis, Tetanus Vaccination: Yes Review of Systems - Review of Systems Constitutional: No symptoms reported EENT: Nose discharge, Sinus discharge, Throat pain Cardiovascular: No symptoms reported Respiratory: Cough, Short of breath - When she laid down Gastrointestinal: No symptoms reported Genitourinary: No symptoms reported Female Genitourinary: No symptoms reported Musculoskeletal: No symptoms reported Skin: No symptoms reported Hematologic/Lymphatic: No symptoms reported Neurological/Psychological: No symptoms reported -: Yes All other systems reviewed and negative Physical Exam - Vital signs Vitals: Temp Pulse Resp BP Pulse Ox 98.2 F 89 16 134/83 H 99 06/21/18 13:58 06/21/18 13:58 06/21/18 13:58 06/21/18 13:58 06/21/18 13:58 Interpretation: Normal - General General appearance: Appears well, Alert - HEENT Head: Normocephalic, Atraumatic Eyes: Normal Pupils: PERRL Ears: Normal External canal: Normal Tympanic membrane: Normal Sinus: Normal Nasal: Purulent discharge, Swelling Mouth/Lips: Normal Pharynx: Post nasal drainage Neck: Normal - Respiratory Respiratory status: No respiratory distress Chest status: Nontender Breath sounds: Normal Chest palpation: Normal - Cardiovascular Rhythm: Regular Heart sounds: Normal auscultation Murmur: No - Abdominal Inspection: Normal, Gravid female Distension: No distension Bowel sounds: Normal Tenderness: Nontender Organomegaly: No organomegaly - Back Back: Normal, Nontender - Extremities General upper extremity: Normal inspection, Nontender, Normal color, Normal ROM , Normal temperature General lower extremity: Normal inspection, Nontender, Normal color, Normal ROM , Normal temperature, Normal weight bearing. No: Fareed's sign - Neurological Neuro grossly intact: Yes Cognition: Normal Orientation: AAOx4 Tyra Coma Scale Eye Opening: Spontaneous [place] Coma Scale Verbal: Oriented [place] Coma Scale Motor: Obeys Commands Tyra Coma Scale Total: 15 Speech: Normal Motor strength normal: LUE, RUE, LLE, RLE Sensory: Normal - Psychological Associated symptoms: Normal affect, Normal mood - Skin Skin Temperature: Warm Skin Moisture: Dry Skin Color: Normal Course - Vital Signs Vital signs: Temp Pulse Resp BP Pulse Ox 98.2 F 89 16 120/74 100 06/21/18 16:24 06/21/18 16:24 06/21/18 16:24 06/21/18 16:24 06/21/18 16:24 Discharge - Discharge Clinical Impression: URI (upper respiratory infection) Qualifiers: URI type: unspecified URI Qualified Code(s): J06.9 - Acute upper respiratory infection, unspecified Condition: Stable Disposition: HOME, SELF-CARE Additional Instructions: UPPER RESPIRATORY ILLNESS: You have a viral infection of the respiratory passages -- a "cold." This common infection causes nasal congestion, drainage, and often sore throat and cough. It is highly contagious. The disease usually lasts about 10 to 14 days. There is no "cure" for the viral infection -- it must run its course. If there is a complication, such as bacterial infection in the nose, sinuses, middle ear, or bronchial tubes, antibiotics may be required. The antibiotics won't affect the virus. Drink plenty of fluids. A humidifier may help. An expectorant medication or decongestant may make you more comfortable. Use acetaminophen or ibuprofen for fever or aches. See the doctor if fever persists over two days, if there is any significant worsening of your symptoms, or if you simply fail to improve as expected. USE OF ACETAMINOPHEN (Tylenol): Acetaminophen may be taken for pain relief or fever control. It's much safer than aspirin, offering a wider range of "safe" dosages. It is safe during . Some brand names are Tylenol, Panadol, Datril, Anacin 3, Tempra, and Liquiprin. Acetaminophen can be repeated every four hours. The following are maximum recommended dosages: >89 pounds or adults 650 mg to 900 mg Acetaminophen can be repeated every four hours. Maximum dose not to exceed 4000 mg a day. You are at 30 weeks so I cough will make you short of breath due to the size of the baby and your abdomen. Try sitting up when you eat and when you sleep to help with your breathing. Her O2 sats are good, your respirations are good, your lung sounds are clear, and we have like to listen to the heartbeat on your child. Please follow-up with your TIRE REPAIRER as scheduled. FOLLOW-UP CARE: If you have been referred to a physician for follow-up care, call the physician s office for an appointment as you were instructed or within the next two days. If you experience worsening or a significant change in your symptoms, notify the physician immediately or return to the Emergency Department at any time for re-evaluation. Referrals: [facility] [Provider Group] - Follow up tomorrow
[2018-06-21 16:25] VITALS: BP 120/74
== END 2018-06-21 16:25 | disposition home or self-care (01) ==
LOC: ER 13:39
DX: O99.413 Diseases of the circulatory system complicating pregnancy, third trimester (principal); J06.9 Acute upper respiratory infection, unspecified; O26.893 Other specified pregnancy related conditions, third trimester; R05 Cough; R09.81 Nasal congestion; R09.89 Other specified symptoms and signs involving the circulatory and respiratory systems; R06.02 Shortness of breath; F41.9 Anxiety disorder, unspecified; Z3A.30 30 weeks gestation of pregnancy; M79.10 Myalgia, unspecified site; J34.89 Other specified disorders of nose and nasal sinuses; J45.909 Unspecified asthma, uncomplicated
CPT/HCPCS: 99283

== ENCOUNTER 2018-08-05 10:56 | Outpatient (CLI) | payer OTHER ==
[2018-08-05 11:25] LABS: APPEARANCE,URINE SLIGHTLY-CLOUDY; BILIRUBIN,URINE NEGATIVE (NEGATIVE); COLOR,URINE YELLOW; GLUCOSE, URINE NEGATIVE (NEGATIVE); KETONES,URINE NEGATIVE (NEGATIVE); LEUKOCYTE ESTERASE,URINE MODERATE (NEGATIVE); NITRITE,URINE NEGATIVE (NEGATIVE); PROTEIN,URINE NEGATIVE (NEGATIVE); URIC ACID CRYSTALS,URINE RARE /HPF; URINE SPECIFIC GRAVITY 1.006; UROBILINOGEN,URINE NEGATIVE mg/dL (<2.0)
[2018-08-05 11:40] LABS: URINE AMPHETAMINES SCREEN NEGATIVE; URINE BARBITURATES SCREEN NEGATIVE; URINE BENZODIAZEPINES SCREEN NEGATIVE; URINE COCAINE SCREEN NEGATIVE; URINE MARIJUANA (THC) SCREEN NEGATIVE; URINE METHADONE SCREEN NEGATIVE; URINE PHENCYCLIDINE SCREEN NEGATIVE
[2018-08-05 11:51] LABS: ABSOLUTE LYMPHOCYTES (AUTO) 1.3 10^3/uL (0.5-4.7); ABSOLUTE MONOCYTES (AUTO) 0.6 10^3/uL (0.1-1.4); ABSOLUTE NEUT (AUTO) 6.6 10^3/uL (1.7-8.2); BASOPHILS % (AUTO) 0.1 % (0-2); EOSINOPHILS % (AUTO) 0.5 % (0-6); HEMATOCRIT 36.2 % (36.0-47.0); HEMOGLOBIN 12.7 g/dL (12.0-15.5); LYMPHOCYTES % (AUTO) 15.3 % (13-45); MEAN CORPUSCULAR HEMOGLOBIN 29.5 pg (27.0-33.4); MEAN CORPUSCULAR HGB CONC 35.1 g/dL (32.0-36.0); MEAN CORPUSCULAR VOLUME 84 fl (80-97); MONOCYTES % (AUTO) 6.9 % (3-13); PLATELET COUNT 219 10^3/uL (150-450); RED BLOOD COUNT 4.31 10^6/uL (3.72-5.28); RED CELL DISTRIBUTION WIDTH 13.5 % (11.5-14.0); SEGMENTED NEUTROPHILS % (AUTO) 77.2 % (42-78); TOTAL CELLS COUNTED % (AUTO) 100 %; WHITE BLOOD COUNT 8.5 10^3/uL (4.0-10.5)
[2018-08-05 11:59] LABS: INTERNATIONAL RATION (INR) 0.92; PROTHROMBIN TIME 12.8 SEC (11.4-15.4)
[2018-08-05 12:00] LABS: PARTIAL THROMBOPLASTIN TIME 29.6 SEC (23.5-35.8)
[2018-08-05 15:31] LABS: FETAL RBC COUNT 0
[2018-08-05 15:32] LABS: KB INTERPRETATION NEGATIVE (NEGATIVE)
--- NOTE | 2018-08-05 17:27 | RADIOLOGY REPORT (SQ) ---
EXAM DESCRIPTION: U/S PROFILE W/O STRESS COMPLETED DATE/TIME: 08/05/2018 5:09 pm REASON FOR STUDY: Non-reactive NST, post fall, placenta well being gestation of 36 weeks 4 days COMPARISON: None. TECHNIQUE: Limited erickson-scale realtime and static images of the fetus to measure specified parameter s. LIMITATIONS: None. FINDINGS: HEART RATE: 141 beats per minute. POONAM: Adequate cm. BREATHING MOVEMENT: 2 points. MOVEMENT: 2 points. POSTURE AND TONE: 2 points. QUALITATIVE POONAM: 2 points. OTHER: No other significant finding. IMPRESSION: BIOPHYSICAL PROFILE: 02/24. Trimester of : Third - 28 weeks to delivery COMMENT: BREATHING MOVEMENTS: 2 POINTS: PRESENT 0 POINTS: ABSENT MOTION: 2 POINTS: PRESENT 0 POINTS: ABSENT TONE: 2 POINTS: PRESENT 0 POINTS: ABSENT AMNIOTIC FLUID VOLUME: 2 POINTS: LARGEST POCKET GREATER THAN 2 CM DEPTH. 0 POINTS: NO POCKET OF 2 CM. TECHNICAL DOCUMENTATION: JOB ID: [id number] [employer]- All Rights Reserved Reading location - IP/workstation name: [email or web address]
== END 2018-08-05 17:25 | disposition home or self-care (01) ==
LOC: LC 10:56
PROVIDERS: ATTEND Obstetrics & Gynecology
PROC: 4A1HXCZ Monitoring of Products of Conception, Cardiac Rate, External Approach (ICD-10-PCS; principal; 2018-08-05)
DX: O9A.213 Injury, poisoning and certain other consequences of external causes complicating pregnancy, third trimester (principal); O26.893 Other specified pregnancy related conditions, third trimester; Z3A.35 35 weeks gestation of pregnancy; W10.8XXA Fall (on) (from) other stairs and steps, initial encounter; Y93.9 Activity, unspecified; Y92.9 Unspecified place or not applicable
CPT/HCPCS: 36415; 76819; 80307; 81001; 85025; 85460; 85610; 85730; 86850; 86870; 86900; 86901

== ENCOUNTER 2018-08-22 20:36 | Outpatient (CLI) | payer OTHER ==
[2018-08-22 21:25] LABS: APPEARANCE,URINE CLEAR; BILIRUBIN,URINE NEGATIVE (NEGATIVE); COLOR,URINE STRAW; GLUCOSE, URINE NEGATIVE (NEGATIVE); KETONES,URINE NEGATIVE (NEGATIVE); LEUKOCYTE ESTERASE,URINE TRACE (NEGATIVE); NITRITE,URINE NEGATIVE (NEGATIVE); PROTEIN,URINE NEGATIVE (NEGATIVE); URINE SPECIFIC GRAVITY 1.006; UROBILINOGEN,URINE NEGATIVE mg/dL (<2.0)
[2018-08-22 21:46] LABS: URINE AMPHETAMINES SCREEN NEGATIVE; URINE BARBITURATES SCREEN NEGATIVE; URINE BENZODIAZEPINES SCREEN NEGATIVE; URINE COCAINE SCREEN NEGATIVE; URINE MARIJUANA (THC) SCREEN NEGATIVE; URINE METHADONE SCREEN NEGATIVE; URINE PHENCYCLIDINE SCREEN NEGATIVE
== END 2018-08-22 21:57 | disposition home or self-care (01) ==
LOC: LC 20:36
PROVIDERS: ATTEND Obstetrics & Gynecology
PROC: 4A1HXCZ Monitoring of Products of Conception, Cardiac Rate, External Approach (ICD-10-PCS; principal; 2018-08-22)
DX: Z34.93 Encounter for supervision of normal pregnancy, unspecified, third trimester (principal)
CPT/HCPCS: 80307; 81005; 84112

== ENCOUNTER 2018-08-22 23:39 | Inpatient (IN) | payer OTHER ==
[2018-08-22] MEDS ORDERED: PENICILLIN G POTASSIUM 5,000,000 UNIT in DEXTROSE 5%-WATER 100 ML IV ONE (23:51)
[2018-08-23] MEDS ORDERED: MISOPROSTOL 0.2 MG TABLET ONE ×2 (00:03→07:38)
[2018-08-23] MEDS ORDERED: OXYTOCIN 10 UNIT/ML VIAL ONE ×2 (00:03→07:37)
[2018-08-23] MEDS ORDERED: OXYTOCIN/NORMAL SALINE 20 UNIT/1,000 ML RTUINJ ONE ×2 (00:03→07:38)
[2018-08-23] MEDS ORDERED: PENICILLIN G-K 5 MILLION UNIT VIAL ONE ×3 (00:03→07:44)
[2018-08-23] MEDS ORDERED: LIDOCAINE 1% INJ-PF (10 MG/ML) 30 ML SDV ONE ×2 (00:03→07:38)
[2018-08-23 00:07] LABS: ABSOLUTE BASOPHILS # (AUTO) 0.1 10^3/uL (0.0-0.2); ABSOLUTE EOSINOPHILS # (AUTO) 0.1 10^3/uL (0.0-0.6); ABSOLUTE LYMPHOCYTES (AUTO) 2.5 10^3/uL (0.5-4.7); ABSOLUTE MONOCYTES (AUTO) 0.8 10^3/uL (0.1-1.4); ABSOLUTE NEUT (AUTO) 9.3 10^3/uL (1.7-8.2); BASOPHILS % (AUTO) 0.5 % (0-2); EOSINOPHILS % (AUTO) 0.6 % (0-6); HEMATOCRIT 34.3 % (36.0-47.0); LYMPHOCYTES % (AUTO) 19.4 % (13-45); MEAN CORPUSCULAR HEMOGLOBIN 28.9 pg (27.0-33.4); MEAN CORPUSCULAR VOLUME 83 fl (80-97); MONOCYTES % (AUTO) 6.3 % (3-13); PLATELET COUNT 280 10^3/uL (150-450); RED BLOOD COUNT 4.15 10^6/uL (3.72-5.28); RED CELL DISTRIBUTION WIDTH 13.2 % (11.5-14.0); SEGMENTED NEUTROPHILS % (AUTO) 73.2 % (42-78); TOTAL CELLS COUNTED % (AUTO) 100 %; WHITE BLOOD COUNT 12.7 10^3/uL (4.0-10.5)
[2018-08-23] MEDS: RINGERS SOLUTION,LACTATED 1,000 ML IV PRN ×2 (00:11→02:30)
[2018-08-23 01:21] LABS: APPEARANCE,URINE CLEAR; BILIRUBIN,URINE NEGATIVE (NEGATIVE); COLOR,URINE COLORLESS; GLUCOSE, URINE NEGATIVE (NEGATIVE); KETONES,URINE NEGATIVE (NEGATIVE); LEUKOCYTE ESTERASE,URINE NEGATIVE (NEGATIVE); NITRITE,URINE NEGATIVE (NEGATIVE); PROTEIN,URINE NEGATIVE (NEGATIVE); URINE SPECIFIC GRAVITY 1.003; UROBILINOGEN,URINE NEGATIVE mg/dL (<2.0)
[2018-08-23 01:38] LABS: URINE AMPHETAMINES SCREEN NEGATIVE; URINE BARBITURATES SCREEN NEGATIVE; URINE BENZODIAZEPINES SCREEN NEGATIVE; URINE COCAINE SCREEN NEGATIVE; URINE MARIJUANA (THC) SCREEN NEGATIVE; URINE METHADONE SCREEN NEGATIVE; URINE PHENCYCLIDINE SCREEN NEGATIVE
--- NOTE | 2018-08-23 02:17 | Admission Physical ---
Datetime Report Generated by CPN: 08/23/2018 02:17 CURRENT ADMISSION Chief Complaint: Suspected Ruptured Membranes Indication for Induction- Other: srom Admit Impression : Term, Intrauterine ; Ruptured Membranes Admit Plan: Admit to Unit; Initiate Labor Induction Protocol ALLERGIES Medication Allergies: Yes Medication Allergies: NSAIDS (Non-Steroidal Anti-Inflamma (08/22/2018); acetaminophen/MO/Hives (08/22/2018) Latex: No Latex Allergies Food Allergies: N/A Environmental Allergies: N/A OBSTETRICAL HISTORY EDC: 09/06/2018 00:00 : 3 Para: 0 SAB: 1 IAB: 1 Livin Gestational Diabetes: No Rh Sensitization: No Incompetent Cervix: No NINFA: No Infertility: Yes ART Treatment: No Uterine Anomaly: No IUGR: No Hx Previous C/S: No Macrosomia: No Hx Loss/Stillborn: No PIH: No Hx : No Placenta Previa/Abruption: No Depression/PP Depression: No PTL/PROM: No Post Hemorrhage: No Current Procedures: Ultrasound Obstetrical History Comments: G1 - 2017, 17 weeks, EAB G2 - 2016, 8 weeks, EAB G3 - Current SEE RECORDS Alcohol: No Marijuana : No Cocaine: No Other Illicit Drugs: No Cigarettes: Never Smoker. [id number] MEDICAL HISTORY Diabetes: No Blood Transfusion: No Pulmonary Disease (Asthma, TB): No Breast Disease: No Hypertension: No Shareholder Surgery: No Heart Disease: No Hosp/Surgery: No Autoimmune Disorder: No Anesthetic Complications: No Kidney Disease: No Abnormal Pap Smear: No Neuro/Epilepsy: No Psychiatric Disorders: No Other Medical Diseases: No Hepatitis/Liver Disease: No Significant Family History: No Varicosities/Phlebitis: No Trauma/Violence : No Thyroid Dysfunction: No INFECTIOUS HISTORY Gonorrhea: No Genital Herpes: No Chlamydia: No Tuberculosis: No Syphilis: No Hepatitis: No HIV/AIDS Exposure: No Rash or Viral Illness: No HPV: No PHYSICAL EXAM General: Normal HEENT: Normal Neurologic: Normal Thyroid: Normal Heart: Normal Lungs: Normal Breast: Deferred Back: Normal Abdomen: Normal Genitourinary Exam: Normal Extremities: Normal DTRs: Normal Pelvic Type: Adequate Vital Signs: Reviewed VAGINAL EXAM Dilatation: 2 Effacement: 75 Station: -2 MEMBRANES Pooling: Positive Membranes: Ruptured FETUS A EGA: 38.0 Monitoring: External US FHR- Baseline: 120 Variability: Moderate 6-25bpm Decelerations: None FHR Category: Category I Presentation: Vertex Admit Comment: will begin pitocin PLANS FOR LABOR AND DELIVERY Labor and Delivery: None Pain Management: Epidural Feeding Preference: Breast Benefit of Breast Feed Discussed: Yes Circumcision: Yes INFORMED CONSENT Signature: with User ID: [email or web address]
[2018-08-23] MEDS ORDERED: OXYTOCIN/NORMAL SALINE 20 UNIT/1,000 ML RTUINJ IV PRN ×2 (02:21→11:26)
[2018-08-23] MEDS: PENICILLIN G POTASSIUM 2,500,000 UNIT in DEXTROSE 5%-WATER 50 ML IV SCH ×3 (04:15→13:01)
[2018-08-23] MEDS ORDERED: EPHEDRINE SULFATE INJ 50 MG/1 ML AMPULE ONE (07:36)
[2018-08-23] MEDS ORDERED: FENTANYL/BUPIVACAINE/NS/PF 300 MCG/150 ML RTUINJ EPI ONE (07:36)
[2018-08-23] MEDS ORDERED: BUPIVACAINE HCL 0.25 % INJ/PF (2.5 MG/1 ML) 30 ML VIAL ONE (07:37)
--- NOTE | 2018-08-23 08:37 | L&D Progress Notes ---
PROGRESS NOTES Datetime Report Generated by CPN: 08/23/2018 08:37 PROGRESS NOTE Impression: Normal Progression of Labor; Reassuring Heart Rate Procedures: Sterile Vag Exam; Epidural Placement Plan: Continue Present Management; Anticipate Vaginal Delivery Plan Other: Position changes encouraged Vital Signs : Reviewed; Within Normal Limits Comment: Epidural in place, pt is comfortable, VE by RN- 8/100/+1. Position changes encouraged, PCN q 4 hours until . Attending MD is Dr Sewell. VAGINAL EXAM Dilatation: 2 Effacement: 75 Station: -2 LAST VAGINAL EXAM-NURSING Dilitation: 8.0 Dilitation: 5.0 Dilitation: 4.0 Dilitation: 1.5 Dilitation: 1.5 Effacement: 100 Effacement: 90 Effacement: 80 Effacement: 75 Effacement: 75 Station: 1 Station: 0 Station: 0 Station: -2 Station: -2 Contractions: difficult to assess while on birthing ball Contractions: not tracing well, TOCO adjusted. per pt 3-5UC becoming more intense Contractions: applied Contractions: applied MEMBRANES Pooling: Positive Membranes: Ruptured Membranes: Ruptured Amniotic Fluid Color: Clear FETUS A FHR - Baseline: 135 Monitoring: External US Variability: Moderate 6-25bpm Accelerations: 15X15 Decelerations: Early : 38.0 Presentation: Vertex SIGNATURE SIGNATURE: ,[id number] SIGNATURE: [id number] Assignment: Madai Sewell MD Signature: with User ID: Cisco : with User ID: Cisco
[2018-08-23] MEDS ORDERED: DIPH/PERTUSS(ACELL)/TETANUS VAC/PF 0.5 ML SYR (>=10YO) IM PRN (11:26)
[2018-08-23] MEDS ORDERED: ACETAMINOPHEN WITH CODEINE #3 TABLET PO PRN (11:26)
[2018-08-23] MEDS ORDERED: MEASLES,MUMPS&RUBELLA VACC/PF 0.5 ML VIAL SUBCUT PRN (11:26)
[2018-08-23] MEDS ORDERED: DIBUCAINE 1% OINTMENT 28 GM TP PRN (11:26)
[2018-08-23] MEDS ORDERED: ZOLPIDEM TARTRATE 5 MG TABLET PO PRN (11:26)
[2018-08-23] MEDS ORDERED: IBUPROFEN 800 MG TABLET PO SCH (11:30)
[2018-08-23] MEDS: BENZOCAINE/MENTHOL AEROSOL SPRAY 56 ML TOP PRN (17:51)
[2018-08-23] MEDS: DOCUSATE SODIUM 100 MG CAPSULE PO SCH (17:51)
[2018-08-23] MEDS: FERROUS SULFATE 325 MG TABLET PO SCH (17:51)
[2018-08-24 09:03] LABS: ABSOLUTE EOSINOPHILS # (AUTO) 0.1 10^3/uL (0.0-0.6); ABSOLUTE LYMPHOCYTES (AUTO) 1.7 10^3/uL (0.5-4.7); ABSOLUTE MONOCYTES (AUTO) 0.6 10^3/uL (0.1-1.4); ABSOLUTE NEUT (AUTO) 7.8 10^3/uL (1.7-8.2); EOSINOPHILS % (AUTO) 1.1 % (0-6); HEMATOCRIT 27.6 % (36.0-47.0); LYMPHOCYTES % (AUTO) 16.9 % (13-45); MEAN CORPUSCULAR HEMOGLOBIN 29.2 pg (27.0-33.4); MEAN CORPUSCULAR HGB CONC 34.9 g/dL (32.0-36.0); MEAN CORPUSCULAR VOLUME 84 fl (80-97); PLATELET COUNT 225 10^3/uL (150-450); RED CELL DISTRIBUTION WIDTH 13.3 % (11.5-14.0); TOTAL CELLS COUNTED % (AUTO) 100 %; WHITE BLOOD COUNT 10.2 10^3/uL (4.0-10.5)
[2018-08-24 09:11] LABS: HEMOGLOBIN 9.6 g/dL (12.0-15.5)
--- NOTE | 2018-08-24 09:23 | PDOC PROGRESS REPORT ---
Subjective-OB Progress Note for:: 08/24/18 Subjective: Pt doing well, no concerns. She reports light bleeding, reg diet and voiding without difficulty. Physical Exam (OB) Vital Signs: Temp Pulse Resp BP Pulse Ox 98.2 F 88 20 121/72 100 08/24/18 07:32 08/24/18 07:32 08/24/18 07:32 08/24/18 07:32 08/24/18 07:32 Intake & Output 08/23/18 08/24/18 08/25/18 06:59 06:59 06:59 Intake Total 340 1650 Balance 340 1650 Weight 73.3 kg - Lochia Lochia Amount: Small 10-25 ml Lochia Color: Rubra/Red - Abdomen Description: Soft, Round Hernia Present: No Fundal Description: Firm Fundal Height: u/u - u/2 Objective-Diagnostic Laboratory: 08/24/18 08:08 08/24/18 08/24/18 08:08 08:08 WBC 10.2 RBC 3.30 L Hgb 9.6 L D Hct 27.6 L MCV 84 MCH 29.2 MCHC 34.9 RDW 13.3 Plt Count 225 Seg Neutrophils % 76.0 Lymphocytes % 16.9 Monocytes % 6.0 Eosinophils % 1.1 Basophils % 0.0 Absolute Neutrophils 7.8 Absolute Lymphocytes 1.7 Absolute Monocytes 0.6 Absolute Eosinophils 0.1 Absolute Basophils 0.0 Blood Type A NEGATIVE Assessment and Plan(PN) - Assessment and Plan (1) Vaginal delivery Is this a current diagnosis for this admission?: Yes - Time Spent with Patient Time with patient: Less than 15 minutes Medications reviewed and adjusted accordingly: Yes - Disposition Anticipated Discharge: Home Within: within 24 hours
[2018-08-24] MEDS: SENNOSIDES/DOCUSATE 8.6-50 MG 1 EACH TABLET PO SCH (09:32)
[2018-08-24] MEDS: FERROUS SULFATE 325 MG TABLET PO SCH ×2 (09:32→17:54)
[2018-08-24] MEDS: PRENATAL VITAMIN W DHA CAPSULE PO SCH (09:32)
[2018-08-24] MEDS: DOCUSATE SODIUM 100 MG CAPSULE PO SCH ×2 (09:32→17:54)
[2018-08-24] MEDS: BENZOCAINE/MENTHOL AEROSOL SPRAY 56 ML TOP PRN (20:55)
--- NOTE | 2018-08-25 08:17 | Delivery Summary ---
Del Sum A-C Datetime Report Generated by CPN: 08/25/2018 08:16 DELIVERY PERSONNEL DELIVERY PERSONNEL: [id number] Delivery Doctor:: Alysa Humphrey CNM Labor and Delivery Nurse:: SHERRY Garcia Nursery Nurse:: KIZZY [place] Tech/HARPOON ENGAGEMENT PLANNING OPERATOR: Merino, Carisa, ST MATERNAL INFORMATION Delivery Anesthesia: Epidural Medications After Delivery: Pitocin Bolus-Please Comment; Pitocin Drip 20 Units/1000ml NSS; Cytotec 800mcg Per Rectum/Vagina Meds After Delivery Comment: Cytotec 200 sublingual Maternal Complications: None Provider Comments: of viable male . JESSEE to JESSE, loose NC and compound presentation of the hand. Baby vigorous and crying, placed on pts abdoman. Cord cut and clamped after one minute. Cord blood collected. Placenta S/C/I, uterine atony managed w/ IV Pitocin and Cytotec. FF with decreased lochia QBL 300 ml. Repair of Rt labial laceration done. Pt and baby in stable condition, she plans to breastfeed. Attending MD is Dr Sewell. LABOR SUMMARY EDC: 09/06/2018 00:00 No. Babies in Womb: 1 Attempted: No Labor Anesthesia: Epidural LABOR INFORMATION Reason for Induction: Not Applicable Onset of Labor: 08/23/2018 04:00 Complete Dilatation: 08/23/2018 10:40 Oxytocin: Augmentation Group B Beta Strep: positive Antibiotics # of Doses: 3 Antibiotics Time of Last Dose: 0800 Name of Antibiotic Given: PENICILLIN G Steroids Given: None Reason Steroids Not Administered: Not Applicable MEMBRANES Membranes Rupture Method: Spontaneous Rupture of Membranes: 08/22/2018 23:30 Length of Rupture (hr): 11.57 Amniotic Fluid Color: Clear Amniotic Fluid Amount: Moderate Amniotic Fluid Odor: Normal STAGES OF LABOR Stage 1 hr: 6 Stage 1 min: 40 Stage 2 hr: 0 Stage 2 min: 24 Stage 3 hr: 0 Stage 3 min: 4 Total Time in Labor hr: 7 Total Time in Labor min: 8 VAGINAL DELIVERY Episiotomy: None Laceration #1: Vaginal Laceration Extension #1: First Degree Other Laceration: r labial Laceration Repair: Yes Laceration Repair Note: figure of eight stitch placed using 3.0 vicryl to bring together. Sponge Count Correct: N/A Sharps Count Correct: N/A BABY A INFORMATION Infant Delivery Date/Time: 08/23/2018 11:04 Method of Delivery: Vaginal Born in Route : No : N/A Shoulder Dystocia : No PRESENTATION/POSITION BABY A Presentation: Cephalic Cephalic Presentation: Vertex Breech Presentation: N/A PLACENTA INFORMATION BABY A Placenta Delivery Time : 08/23/2018 11:08 Placenta Method of Delivery: Spontaneous Placenta Method of Delivery: Spontaneous Placenta Status: Delivered SCORES BABY A Heart Rate 1 min: >100 bpm Resp Effort 1 min: Good Cry Reflex Irritability 1 min: Cough or Sneeze or Pulls Away Muscle Tone 1 min: Active Motion Color 1 min: Blue/Pale SCORE 1 MIN: 8 Heart Rate 5 min: >100 bpm Resp Effort 5 min: Good Cry Reflex Irritability 5 min: Cough or Sneeze or Pulls Away Muscle Tone 5 min: Active Motion Color 5 min: Body [place], Extremities Blue SCORE 5 MIN: 9 INFANT INFORMATION BABY A Gestational Age at Delivery: 38.0 Gestational Status: Early Term- 37- 38.6 Weeks Condition : Stable Infant Sex: Male Infant Sex: Male IDENTIFICATION BABY A Infant Verification Date/Time: 08/23/2018 11:28 ID Band Number: [id number] Mother's Name Verified: Yes RN Verifying Infant: Joanna, S Additional Verifying Personnel: Merino, Audio[employer] WEIGHT/LENGTH BABY A Infant Birthweight (gm): 2538 Weight (lb): 5 Infant Weight (oz): 10 Length (in): 19.50 Length (cm): 49.53 CORD INFORMATION BABY A No. Cord Vessels: 3 Nuchal Cord : Around Neck x1, Loose Cord Blood Taken: Yes-For Eval (Mom's Blood Type - or O+) ASSESSMENT BABY A Infant Complications: Multiple Variable Decels Physical Findings at Delivery: Caput Succedaneum; Molding of the Head Infant Respirations: Appears Normal Skin to Skin: Yes Skin to Skin: Yes Skin to Skin: Yes Focusing Machine Operator/ALS Called : No Care By: Theodore Lopez RN Transferred To: Remains with Mother BABY B INFORMATION : N/A SIGNATURES Assignment: Madai Sewell MD Signature: with User ID: Cisco : with User ID: Cisco
[2018-08-25] MEDS: FERROUS SULFATE 325 MG TABLET PO SCH (09:15)
[2018-08-25] MEDS: DOCUSATE SODIUM 100 MG CAPSULE PO SCH (09:15)
[2018-08-25] MEDS: SENNOSIDES/DOCUSATE 8.6-50 MG 1 EACH TABLET PO SCH (09:15)
[2018-08-25] MEDS: PRENATAL VITAMIN W DHA CAPSULE PO SCH (09:15)
--- NOTE | 2018-08-25 10:09 | PDOC DISCHARGE SUMMARY ---
Final Diagnosis Discharge Date: 08/25/18 - Final Diagnosis (1) Vaginal delivery Is this a current diagnosis for this admission?: Yes (2) Anemia due to acute blood loss Is this a current diagnosis for this admission?: Yes (3) Obstetric labial laceration, delivered, current hospitalization Is this a current diagnosis for this admission?: Yes Discharge Data - Discharge Medication Prescriptions: Benzocaine/Menthol [Dermoplast Aerosol [place] 56 ml] 1 applic TOP PRN PRN #1 can PRN Reason: Ferrous Sulfate [Feosol 325 mg Tablet] 325 mg PO BID #60 tablet Home Medications: Cyanocobalamin/Folic AC/Vit B6 [Folic Acid-Vit B6-Vit B12 Tab] 1 each PO DAILY 08/05/18 No122/Iron/Folic Acid [ Multi Tablet] 1 each PO DAILY 08/05/18 Valacyclovir HCl [Valtrex] 500 mg PO DAILY 08/22/18 Benzocaine/Menthol [Dermoplast Aerosol [place] 56 ml] 1 applic TOP PRN PRN #1 can 08/25/18 Ferrous Sulfate [Feosol 325 mg Tablet] 325 mg PO BID #60 tablet 08/25/18 Reason(s) for Admission: Onset of Labor Procedures: Ultrasound Intrapartum Procedure(s): Spontaneous Vaginal Delivery Complication(s): Laceration-Labial Laceration-Degree: 1st - Diagnosis Test Laboratory: Temp Pulse Resp BP Pulse Ox 98.4 F 70 15 117/91 H 99 08/25/18 08:50 08/25/18 08:50 08/25/18 08:50 08/25/18 08:50 08/25/18 08:50 08/22/18 08/23/18 08/24/18 23:59 00:46 08:08 RBC 4.15 3.30 L Hgb 12.0 9.6 L D Hct 34.3 L 27.6 L Urine Opiates Screen NEGATIVE - Discharge information/Instructions Discharge Activity: Balance Activity w/Rest, No Lifting/Push/Pulling, Pelvic Rest, No tub bath, Walk Frequently Discharge Diet: As Tolerated, Regular Disposition: HOME, SELF-CARE Follow up with: [facility] in: 4, Weeks
[2018-08-25 11:55] VITALS: BP 134/81
--- NOTE | 2018-08-30 02:36 | Delivery Summary ---
Del Sum A-C Datetime Report Generated by CPN: 08/30/2018 02:36 DELIVERY PERSONNEL DELIVERY PERSONNEL: [id number] Delivery Doctor:: Alysa Humphrey CNM Labor and Delivery Nurse:: SHERRY Garcia Nursery Nurse:: KIZZY [place] Tech/CATERING ASSOCIATE: Merino, Carisa, ST MATERNAL INFORMATION Delivery Anesthesia: Epidural Medications After Delivery: Pitocin Bolus-Please Comment; Pitocin Drip 20 Units/1000ml NSS; Cytotec 800mcg Per Rectum/Vagina Meds After Delivery Comment: Cytotec 200 sublingual Maternal Complications: None Provider Comments: of viable male . JESSEE to JESSE, loose NC and compound presentation of the hand. Baby vigorous and crying, placed on pts abdoman. Cord cut and clamped after one minute. Cord blood collected. Placenta S/C/I, uterine atony managed w/ IV Pitocin and Cytotec. FF with decreased lochia QBL 300 ml. Repair of Rt labial laceration done. Pt and baby in stable condition, she plans to breastfeed. Attending MD is Dr Sewell. LABOR SUMMARY EDC: 09/06/2018 00:00 No. Babies in Womb: 1 Attempted: No Labor Anesthesia: Epidural LABOR INFORMATION Reason for Induction: Not Applicable Onset of Labor: 08/23/2018 04:00 Complete Dilatation: 08/23/2018 10:40 Oxytocin: Augmentation Group B Beta Strep: positive Antibiotics # of Doses: 3 Antibiotics Time of Last Dose: 0800 Name of Antibiotic Given: PENICILLIN G Steroids Given: None Reason Steroids Not Administered: Not Applicable MEMBRANES Membranes Rupture Method: Spontaneous Rupture of Membranes: 08/22/2018 23:30 Length of Rupture (hr): 11.57 Amniotic Fluid Color: Clear Amniotic Fluid Amount: Moderate Amniotic Fluid Odor: Normal STAGES OF LABOR Stage 1 hr: 6 Stage 1 min: 40 Stage 2 hr: 0 Stage 2 min: 24 Stage 3 hr: 0 Stage 3 min: 4 Total Time in Labor hr: 7 Total Time in Labor min: 8 VAGINAL DELIVERY Episiotomy: None Laceration #1: Vaginal Laceration Extension #1: First Degree Other Laceration: r labial Laceration Repair: Yes Laceration Repair Note: figure of eight stitch placed using 3.0 vicryl to bring together. Sponge Count Correct: N/A Sharps Count Correct: N/A BABY A INFORMATION Infant Delivery Date/Time: 08/23/2018 11:04 Method of Delivery: Vaginal Born in Route : No : N/A Shoulder Dystocia : No PRESENTATION/POSITION BABY A Presentation: Cephalic Cephalic Presentation: Vertex Breech Presentation: N/A PLACENTA INFORMATION BABY A Placenta Delivery Time : 08/23/2018 11:08 Placenta Method of Delivery: Spontaneous Placenta Status: Delivered SCORES BABY A Heart Rate 1 min: >100 bpm Resp Effort 1 min: Good Cry Reflex Irritability 1 min: Cough or Sneeze or Pulls Away Muscle Tone 1 min: Active Motion Color 1 min: Blue/Pale SCORE 1 MIN: 8 Heart Rate 5 min: >100 bpm Resp Effort 5 min: Good Cry Reflex Irritability 5 min: Cough or Sneeze or Pulls Away Muscle Tone 5 min: Active Motion Color 5 min: Body [place], Extremities Blue SCORE 5 MIN: 9 INFORMATION BABY A Gestational Age at Delivery: 38.0 Gestational Status: Early Term- 37- 38.6 Weeks Condition : Stable Sex: Male IDENTIFICATION BABY A Infant Verification Date/Time: 08/23/2018 11:28 ID Band Number: [id number] Mother's Name Verified: Yes Infant RN Verifying : Joanna, S Additional Verifying Personnel: Wilber, Medlio WEIGHT/LENGTH BABY A Infant Birthweight (gm): 2538 Weight (lb): 5 Weight (oz): 10 Length (in): 19.50 Infant Length (cm): 49.53 CORD INFORMATION BABY A No. Cord Vessels: 3 Nuchal Cord : Around Neck x1, Loose Cord Blood Taken: Yes-For Eval (Mom's Blood Type - or O+) ASSESSMENT BABY A Complications: Multiple Variable Decels Physical Findings at Delivery: Caput Succedaneum; Molding of the Head Infant Respirations: Appears Normal Skin to Skin: Yes Shared Services Representative/ALS Called : No Care By: Theodore Lopez RN Transferred To: Remains with Mother BABY B INFORMATION : N/A SIGNATURES Assignment: Madai Sewell MD Signature: with User ID: Cisco : with User ID: Cisco
== END 2018-08-25 11:56 | disposition home or self-care (01) | DRG 806 ==
LOC: LC 23:39 → LR 08-23 00:05 → 2S 08-23 14:07
PROVIDERS: ADMIT Obstetrics & Gynecology; ATTEND Obstetrics & Gynecology
PROC: 10E0XZZ Delivery of Products of Conception, External Approach (ICD-10-PCS; principal; 2018-08-23)
PROC: 3E0234Z Introduction of Serum, Toxoid and Vaccine into Muscle, Percutaneous Approach (ICD-10-PCS; 2018-08-24)
DX: O36.0930 Maternal care for other rhesus isoimmunization, third trimester, not applicable or unspecified (principal); D62 Acute posthemorrhagic anemia; Z37.0 Single live birth; O99.824 Streptococcus B carrier state complicating childbirth; O99.02 Anemia complicating childbirth; O69.81X0 Labor and delivery complicated by cord around neck, without compression, not applicable or unspecified; O32.6XX0 Maternal care for compound presentation, not applicable or unspecified; F41.8 Other specified anxiety disorders; O70.0 First degree perineal laceration during delivery; O76 Abnormality in fetal heart rate and rhythm complicating labor and delivery; O99.334 Smoking (tobacco) complicating childbirth; F17.210 Nicotine dependence, cigarettes, uncomplicated; Z3A.38 38 weeks gestation of pregnancy
CPT/HCPCS: 36415; 80307; 81005; 85025; 85461; 86592; 86850; 86870; 86900; 86901; J2540; J2590; J2790; J3010; J3490

== ENCOUNTER 2019-02-07 12:29 | Emergency (ER) | payer OTHER ==
--- NOTE | 2019-02-07 15:33 | ER Document Report ---
ED Medical Screen (RME) - General Chief Complaint: Nausea Stated Complaint: SICK Time Seen by Provider: 02/07/19 15:30 Mode of Arrival: Ambulatory Information source: Patient Notes: Patient is a 23-year-old female G5, P1 presenting to the emergency department with vague complaints today. Patient initially told the triage nurse upfront that she felt "sick". And had no nausea or vomiting. She then complains to me in the second triage nurse of nausea, vomiting, vaginal bleeding and abdominal pain. She reports she is but does not know how far along she is. Exam: Patient alert, oriented, no acute distress noted. Abdomen soft, nontender. I have greeted and performed a rapid initial assessment of this patient. A comprehensive ED assessment and evaluation of the patient, analysis of test results and completion of the medical decision making process will be conducted by additional ED providers. I have specifically instructed the patient or family members with the patient to immediately return to any nursing staff should anything change in the patient's condition or with their chief complaint. This medical record was dictated with voice recognizing software. There may be grammatical, syntax errors that are unintended. TRAVEL OUTSIDE OF THE [place] IN LAST 30 DAYS: No - Related Data Allergies/Adverse Reactions: acetaminophen [From Vicodin] Adverse Reaction (Intermediate, Verified 08/22/18 21:35) Hives NSAIDS (Non-Steroidal Anti-Inflamma Adverse Reaction (Unknown, Verified 08/22/18 21:35) Past Medical History Pulmonary Medical History: Reports: Hx Asthma Renal/ Medical History: Reports: Hx Pelvic Inflammatory Disease. Denies: Hx Peritoneal Dialysis GI Medical History: Reports: Hx Crohn's Disease - Immunizations Immunizations up to date: Yes Hx Diphtheria, Pertussis, Tetanus Vaccination: Yes Physical Exam - Vital signs Vitals: Temp Pulse Resp BP Pulse Ox 98.3 F 81 16 123/62 99 02/07/19 15:06 02/07/19 15:06 02/07/19 15:06 02/07/19 15:06 02/07/19 15:06 Course - Vital Signs Vital signs: Temp Pulse Resp BP Pulse Ox 98.3 F 81 16 123/62 99 02/07/19 15:06 02/07/19 15:06 02/07/19 15:06 02/07/19 15:06 02/07/19 15:06
[2019-02-07 16:27] LABS: ABSOLUTE LYMPHOCYTES (AUTO) 1.6 10^3/uL (0.5-4.7); ABSOLUTE MONOCYTES (AUTO) 0.6 10^3/uL (0.1-1.4); ABSOLUTE NEUT (AUTO) 8.9 10^3/uL (1.7-8.2); BASOPHILS % (AUTO) 0.1 % (0-2); EOSINOPHILS % (AUTO) 0.1 % (0-6); HEMATOCRIT 40.7 % (36.0-47.0); HEMOGLOBIN 13.7 g/dL (12.0-15.5); LYMPHOCYTES % (AUTO) 14.2 % (13-45); MEAN CORPUSCULAR HEMOGLOBIN 27.8 pg (27.0-33.4); MEAN CORPUSCULAR HGB CONC 33.7 g/dL (32.0-36.0); MEAN CORPUSCULAR VOLUME 83 fl (80-97); MONOCYTES % (AUTO) 5.4 % (3-13); PLATELET COUNT 292 10^3/uL (150-450); RED BLOOD COUNT 4.93 10^6/uL (3.72-5.28); RED CELL DISTRIBUTION WIDTH 14.1 % (11.5-14.0); SEGMENTED NEUTROPHILS % (AUTO) 80.2 % (42-78); TOTAL CELLS COUNTED % (AUTO) 100 %; WHITE BLOOD COUNT 11.1 10^3/uL (4.0-10.5)
[2019-02-07 16:33] LABS: APPEARANCE,URINE CLOUDY; BILIRUBIN,URINE NEGATIVE (NEGATIVE); COLOR,URINE AMBER; GLUCOSE, URINE NEGATIVE (NEGATIVE); KETONES,URINE 80 mg/dL (NEGATIVE); LEUKOCYTE ESTERASE,URINE SMALL (NEGATIVE); NITRITE,URINE NEGATIVE (NEGATIVE); PROTEIN,URINE 100 mg/dL (NEGATIVE); URINE SPECIFIC GRAVITY 1.027; UROBILINOGEN,URINE NEGATIVE mg/dL (<2.0)
--- NOTE | 2019-02-07 16:41 | RADIOLOGY REPORT (SQ) ---
EXAM DESCRIPTION: U/S [id number] TRNABD 1GES W/ODOP COMPLETED DATE/TIME: 02/07/2019 4:30 pm REASON FOR STUDY: preg, vag bleed COMPARISON: None. TECHNIQUE: Transabdominal static and realtime grayscale images acquired of the pelvis. Additional se lected spectral and color Doppler images recorded. All images stored on PACs. bHCG: Pending. CLINICAL DATES: 13 week 2 day. LIMITATIONS: None. FINDINGS: FETUS: Single Living intrauterine . ULTRASOUND EGA: 11 week 4 day. ULTRASOUND AMANDA: 08/25/2019. EFW: Not applicable less than 20 weeks. CRL: 4.81 cm. FHR: 173 beats per minute. SURVEY: No visualized anomalies. AMNIOTIC FLUID: Adequate amount. PLACENTA: Not yet developed due to early gestation. SUBCHORIONIC BLEED: No. SIZE OF BLEED: Not applicable. UTERUS: No masses. No anomalies. CERVICAL LENGTH: 2.7 cm. Closed. RIGHT ADNEXA: Normal ovary with normal vascular flow. No adnexal free fluid. No adnexal masses. LEFT ADNEXA: Ovary not identified due to poor acoustical window. No adnexal free fluid. No adnexal masses. FREE FLUID: None. OTHER: No other significant finding. IMPRESSION: LIVING INTRAUTERINE . EGA 11 WEEK 4 DAY. Trimester of : First trimester - 0 to 13 weeks. TECHNICAL DOCUMENTATION: JOB ID: [id number] [employer]- All Rights Reserved rev Reading location - IP/workstation name: [email or web address]
[2019-02-07] MEDS ORDERED: NITROFURANTOIN MONOHYD/M-CRYST 100 MG CAPSULE PO ONE (17:40)
--- NOTE | 2019-02-07 17:48 | ER Document Report ---
ED General - General Chief Complaint: Nausea Stated Complaint: SICK Time Seen by Provider: 02/07/19 15:30 Mode of Arrival: Ambulatory TRAVEL OUTSIDE OF THE [place] IN LAST 30 DAYS: No - HPI Notes: Patient is a 23-year-old female G5, P1 that presents to the emergency department for chief complaint of nausea and vomiting. Patient states that she is currently but does not know how far along she is and [place] She reports nausea and vomiting throughout this . She has taken Unisom at home which does give her relief. She denies any fevers, abdominal pain or diarrhea. Patient noticed some pink tinge to her vaginal discharge yesterday. She denies concern for STD. 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 She is taking vitamins. She denies any dysuria or urinary frequency. Past Medical History: Crohn's Past Surgical History: reviewed in chart Social History: Reviewed in chart Family History: Reviewed and noncontributory for presenting illness Allergies: Reviewed, see documented allergy list. REVIEW OF SYSTEMS: CONSTITUTIONAL : No fever No chills No diaphoresis No recent illness EENT: No vision changes No congestion No sore throat CARDIOVASCULAR: No chest pain No palpitations RESPIRATORY: No shortness of breath No cough No difficulty breathing GASTROINTESTINAL: No abdominal pain nausea vomiting No diarrhea GENITOURINARY: Vaginal bleeding No dysuria No hematuria No difficulty urinating MUSCULOSKELETAL: No back pain No leg pain No arm pain SKIN: No rashes No lesions LYMPHATIC: No swollen, enlarged glands. NEUROLOGICAL: No lightheadedness No headache No weakness No paresthesias PSYCHIATRIC: No anxiety No depression PHYSICAL EXAMINATION: Vital signs reviewed, nursing noted reviewed. GENERAL: Well-appearing, well-nourished and in no acute distress. HEAD: Atraumatic, normocephalic. EYES: Eyes appear normal, extraocular movements intact, sclera anicteric, conjunctiva are normal. ENT: nares patent, oropharynx clear without exudates. Moist mucous membranes. NECK: Normal range of motion, supple without lymphadenopathy LUNGS: Breath sounds clear to auscultation bilaterally and equal. No wheezes rales or rhonchi. HEART: Regular rate and rhythm without murmurs ABDOMEN: Soft, nontender, normoactive bowel sounds. No rebound, guarding, or rigidity. No masses appreciated. EXTREMITIES: Nontender, good range of motion, no pitting or edema. NEUROLOGICAL: No focal neurological deficits. Moves all extremities spontaneou sly Motor and sensory grossly intact on exam. PSYCH: Normal mood, normal affect. SKIN: Warm, Dry, normal turgor, no rashes or lesions noted on exposed skin - Related Data Allergies/Adverse Reactions: acetaminophen [From Vicodin] Adverse Reaction (Intermediate, Verified 08/22/18 21:35) Hives NSAIDS (Non-Steroidal Anti-Inflamma Adverse Reaction (Unknown, Verified 08/22/18 21:35) Past Medical History - General Information source: Patient - Social History Smoking Status: Never Smoker Frequency of alcohol use: None Drug Abuse: None Family History: Reviewed & Not Pertinent Patient has suicidal ideation: No Patient has homicidal ideation: No Pulmonary Medical History: Reports: Hx Asthma Renal/ Medical History: Reports: Hx Pelvic Inflammatory Disease. Denies: Hx Peritoneal Dialysis GI Medical History: Reports: Hx Crohn's Disease - Immunizations Immunizations up to date: Yes Hx Diphtheria, Pertussis, Tetanus Vaccination: Yes Physical Exam - Vital signs Vitals: Temp Pulse Resp BP Pulse Ox 98.3 F 81 16 123/62 99 02/07/19 15:06 02/07/19 15:06 02/07/19 15:06 02/07/19 15:06 02/07/19 15:06 Course - Re-evaluation Re-evalutation: 02/07/19 17:45 Vitals reviewed. Nursing notes reviewed. Patient is well-appearing and in no acute distress. Abdominal exam is soft with no focal tenderness. Pelvic ultrasound shows single live intrauterine gestation at 11 weeks and 4 days. She is not complaining of any active vaginal bleeding and has no concerns for STD therefore pelvic exam has been deferred. Urinalysis does show trace leuks and WBCs, urine culture has been added. Patient will be started on Macrobid for concern of early UTI. We did discuss antiemetic medications and the risk in . Patient will continue to take Unisom as needed for her nausea and will discuss any further antiemetics with her PLEATER. She will follow with PLEATER in the next few days for close reevaluation. She was counseled on threatened miscarriage symptoms and return precautions. She will receive RhoGam prior to discharge. Laboratory 02/07/19 02/07/19 02/07/19 16:00 16:00 16:00 WBC 11.1 H RBC 4.93 Hgb 13.7 Hct 40.7 MCV 83 MCH 27.8 MCHC 33.7 RDW 14.1 H Plt Count 292 Seg Neutrophils % 80.2 H Lymphocytes % 14.2 Monocytes % 5.4 Eosinophils % 0.1 Basophils % 0.1 Absolute Neutrophils 8.9 H Absolute Lymphocytes 1.6 Absolute Monocytes 0.6 Absolute Eosinophils 0.0 Absolute Basophils 0.0 Beta HCG, Quant 923026.00 H Total Beta HCG POSITIVE Urine Color Urine Appearance Urine pH Ur Specific [place] Urine Protein Urine Glucose (UA) Urine Ketones Urine Blood Urine Nitrite Urine Bilirubin Urine Urobilinogen Ur Leukocyte Esterase Urine WBC (Auto) Urine RBC (Auto) Urine Bacteria (Auto) Squamous Epi Cells Auto Urine Mucus (Auto) Urine Ascorbic Acid Blood Type A NEGATIVE 02/07/19 16:00 WBC RBC Hgb Hct MCV MCH MCHC RDW Plt Count Seg Neutrophils % Lymphocytes % Monocytes % Eosinophils % Basophils % Absolute Neutrophils Absolute Lymphocytes Absolute Monocytes Absolute Eosinophils Absolute Basophils Beta HCG, Quant Total Beta HCG Urine Color JOSE Urine Appearance CLOUDY Urine pH 5.0 Ur Specific [place] 1.027 Urine Protein 100 H Urine Glucose (UA) NEGATIVE Urine Ketones 80 H Urine Blood NEGATIVE Urine Nitrite NEGATIVE Urine Bilirubin NEGATIVE Urine Urobilinogen NEGATIVE Ur Leukocyte Esterase SMALL H Urine WBC (Auto) 11 Urine RBC (Auto) 4 Urine Bacteria (Auto) TRACE Squamous Epi Cells Auto 17 Urine Mucus (Auto) FEW Urine Ascorbic Acid 40 H Blood Type Obstetrics Ultrasound 02/07/19 15:33 IMPRESSION: LIVING INTRAUTERINE . EGA 11 WEEK 4 DAY. Trimester of : First trimester - 0 to 13 weeks. - Vital Signs Vital signs: Temp Pulse Resp BP Pulse Ox 98.3 F 81 16 123/62 99 02/07/19 15:06 02/07/19 15:06 02/07/19 15:06 02/07/19 15:06 02/07/19 15:06 - Laboratory Result Diagrams: 02/07/19 16:00 Laboratory results interpreted by me: 02/07/19 02/07/19 02/07/19 16:00 16:00 16:00 WBC 11.1 H RDW 14.1 H Seg Neutrophils % 80.2 H Absolute Neutrophils 8.9 H Beta HCG, Quant 971381.00 H Urine Protein 100 H Urine Ketones 80 H Ur Leukocyte Esterase SMALL H Urine Ascorbic Acid 40 H Discharge - Discharge Clinical Impression: Threatened miscarriage, Acute UTI Condition: Stable Disposition: HOME, SELF-CARE Instructions: Rhogam ([facility]), Threatened Abortions ( Patients) Additional Instructions: Please return to the emergency department if you have any worsening, or concern of your symptoms. Please return to the emergency department if you develop chest pain, difficulty breathing, severe abdominal pain, or ongoing vomiting. Please follow-up with your primary care physician in 2-3 days and any other recommended physicians. If prescribed, take all medications as directed. If you have any questions or concerns do not hesitate to return the emergency department for evaluation. If you begin to have increased vaginal bleeding and/or bleeding through a pad every hour return to the emergency room for reevaluation of your bleeding. Otherwise contact her PLEATER tomorrow for follow-up appointment. Prescriptions: Nitrofurantoin Macrocrystal [Macrodantin] 100 mg PO BID #10 capsule
[2019-02-07 19:19] VITALS: BP 124/63
== END 2019-02-07 19:27 | disposition home or self-care (01) ==
LOC: ER 12:29 → EDSTATUS 19:43
DX: O20.0 Threatened abortion (principal); O23.41 Unspecified infection of urinary tract in pregnancy, first trimester; O21.9 Vomiting of pregnancy, unspecified; Z3A.11 11 weeks gestation of pregnancy
CPT/HCPCS: 99284; 86900; 86901; 36415; 87086; 86850; 84702; 85025; 81001; 76801; J8499

== ENCOUNTER 2019-07-30 11:01 | Inpatient (IN) | payer OTHER ==
[2019-07-30 11:51] LABS: AMORPHOUS SEDIMENT,URINE TRACE /HPF; APPEARANCE,URINE CLOUDY; BILIRUBIN,URINE NEGATIVE (NEGATIVE); COLOR,URINE YELLOW; GLUCOSE, URINE NEGATIVE (NEGATIVE); KETONES,URINE NEGATIVE (NEGATIVE); LEUKOCYTE ESTERASE,URINE MODERATE (NEGATIVE); NITRITE,URINE POSITIVE (NEGATIVE); PROTEIN,URINE 30 mg/dL (NEGATIVE); TRICHOMONAS, URINE NO /HPF; URINE AMPHETAMINES SCREEN NEGATIVE; URINE BARBITURATES SCREEN NEGATIVE; URINE BENZODIAZEPINES SCREEN NEGATIVE; URINE COCAINE SCREEN NEGATIVE; URINE METHADONE SCREEN NEGATIVE; URINE PHENCYCLIDINE SCREEN NEGATIVE; UROBILINOGEN,URINE NEGATIVE mg/dL (<2.0)
[2019-07-30] MEDS ORDERED: PENICILLIN G POTASSIUM 5,000,000 UNIT in DEXTROSE 5%-WATER 100 ML IV ONE (11:51)
[2019-07-30] MEDS ORDERED: BETAMET ACET/BETAMET NA INJ 6 MG/1 ML ONE (11:54)
[2019-07-30] MEDS ORDERED: PENICILLIN G-K 5 MILLION UNIT VIAL ONE ×3 (11:54→19:46)
[2019-07-30 12:00] LABS: URINE MARIJUANA (THC) SCREEN UNCONFIRMED POSITIVE
--- NOTE | 2019-07-30 12:18 | Admission Physical ---
Datetime Report Generated by CPN: 07/30/2019 12:17 CURRENT ADMISSION Chief Complaint: Suspected Ruptured Membranes Indication for Induction: PROM Indication for Induction- Other: at 36.2 wks EGA with PROM. She reports leaking fluid since just after midnight this morning. Clear and enough that she had to change clothes multilple times and wear pads. GOod FM. NO VB. No ctx. complicated by Hx of HSV by labs but never an outbreak. She has no symptoms currently of outbreak (HSV confidential from partner/family). GBS not tested previously Admit Impression : , Intrauterine ; Ruptured Membranes Admit Plan: Admit to Unit; Initiate Labor Protocol; Initiate Labor Induction Protocol ALLERGIES Medication Allergies: No Medication Allergies: NSAIDS (Non-Steroidal Anti-Inflamma (08/22/2018); acetaminophen/MO/Hives (08/22/2018) Latex: No Latex Allergies Food Allergies: none Environmental Allergies: none OBSTETRICAL HISTORY EDC: 08/25/2019 00:00 : 4 Para: 1 Term: 1 SAB: 2 Livin Gestational Diabetes: No Rh Sensitization: No Incompetent Cervix: No NIFNA: No Infertility: No ART Treatment: No Uterine Anomaly: No IUGR: No Hx Previous C/S: No Macrosomia: No Hx Loss/Stillborn: No PIH: No Hx : No Placenta Previa/Abruption: No Depression/PP Depression: No PTL/PROM: No Post Hemorrhage: No Current Procedures: Ultrasound SEE RECORDS Alcohol: No Marijuana : No Cocaine: No Other Illicit Drugs: No Cigarettes: Former Smoker. [id number] Cigarette Frequency: < 5 per day Advised to Stop: No Cigarette Comments: quit 8.5 months ago prior to finding out she was . was maybe a cigarette a day because she had just had her son. MEDICAL HISTORY Diabetes: No Blood Transfusion: No Pulmonary Disease (Asthma, TB): Yes Breast Disease: No Hypertension: No Mobile Manager Surgery: No Heart Disease: No Hosp/Surgery: No Autoimmune Disorder: No Anesthetic Complications: No Kidney Disease: No Abnormal Pap Smear: No Neuro/Epilepsy: No Psychiatric Disorders: No Other Medical Diseases: Yes Hepatitis/Liver Disease: No Significant Family History: No Varicosities/Phlebitis: No Trauma/Violence : No Thyroid Dysfunction: No Medical History Comments: Asthma, anemia with previous , and Crohn's disease INFECTIOUS HISTORY Gonorrhea: No Genital Herpes: Yes Chlamydia: No Tuberculosis: No Syphilis: No Hepatitis: No HIV/AIDS Exposure: No Rash or Viral Illness: No HPV: No Infectious History Comments: patient diagnosed 4 years ago but never had an outbreak PHYSICAL EXAM General: Normal HEENT: Normal Neurologic: Normal Thyroid: Normal Heart: Normal Lungs: Normal Breast: Normal Back: Normal Abdomen: Normal Genitourinary Exam: Normal Extremities: Normal DTRs: Normal Pelvic Type: Adequate Vital Signs: Reviewed; Within Normal Limits VAGINAL EXAM Dilatation: 3 Effacement: 50 Station: -3 MEMBRANES Pooling: Positive Ferning Results: Positive Membranes: Ruptured Amniotic Fluid Color: Clear FETUS A EGA: 36.2 Monitoring: External US FHR- Baseline: 135 Variability: Marked >25bpm Accelerations: 10X10 Decelerations: None FHR Category: Category I Presentation: Vertex Admit Comment: at 36.2 wks EGA with PROM and complicated by GBS unknown and hx of HSV by lab testing-no outbreak history and no symptoms now -Admit to LDR -IVFs and NPO -GBS unknown-PCN IV now. Swab obtained with G/C -Exam showed NO lesions, pooling of clear fluid noted. Not on Valtrex suppression this -IUP at 36.2, will give BMZ x1 now -Will begin pitocin low dose protocol for IOL -Hx one prior , anticipate -Possible epidural: undecided at this time PLANS FOR LABOR AND DELIVERY Labor and Delivery: None Pain Management: Epidural Feeding Preference: Formula Benefit of Breast Feed Discussed: Yes Circumcision: Yes INFORMED CONSENT Informed Consent Obtained: Vaginal Delivery; Induction of Labor; Risks, Benefits and Alternatives Discussed Signature: with User ID: [email or web address] : with User ID: [email or web address]
[2019-07-30 12:31] LABS: ABSOLUTE EOSINOPHILS # (AUTO) 0.1 10^3/uL (0.0-0.6); ABSOLUTE LYMPHOCYTES (AUTO) 2.1 10^3/uL (0.5-4.7); ABSOLUTE MONOCYTES (AUTO) 0.5 10^3/uL (0.1-1.4); ABSOLUTE NEUT (AUTO) 5.1 10^3/uL (1.7-8.2); BASOPHILS % (AUTO) 0.1 % (0-2); EOSINOPHILS % (AUTO) 0.8 % (0-6); HEMOGLOBIN 11.5 g/dL (12.0-15.5); MEAN CORPUSCULAR HEMOGLOBIN 29.2 pg (27.0-33.4); MEAN CORPUSCULAR HGB CONC 34.9 g/dL (32.0-36.0); MEAN CORPUSCULAR VOLUME 84 fl (80-97); MONOCYTES % (AUTO) 6.7 % (3-13); PLATELET COUNT 319 10^3/uL (150-450); RED BLOOD COUNT 3.94 10^6/uL (3.72-5.28); RED CELL DISTRIBUTION WIDTH 14.3 % (11.5-14.0); SEGMENTED NEUTROPHILS % (AUTO) 65.4 % (42-78); TOTAL CELLS COUNTED % (AUTO) 100 %; WHITE BLOOD COUNT 7.7 10^3/uL (4.0-10.5)
[2019-07-30] MEDS ORDERED: OXYTOCIN/NORMAL SALINE 20 UNIT/1,000 ML RTUINJ IV PRN (12:59)
[2019-07-30] MEDS ORDERED: MISOPROSTOL 0.2 MG TABLET PR PRN (13:02)
[2019-07-30] MEDS ORDERED: OXYTOCIN 10 UNIT/ML VIAL IV PRN (13:02)
[2019-07-30] MEDS ORDERED: NALOXONE HCL INJ/PF 0.4 MG/1 ML SDV IV PRN (13:02)
[2019-07-30] MEDS ORDERED: METHYLERGONOVINE MALEATE INJ/PF 0.2 MG/1 ML AMPULE IV PRN (13:02)
[2019-07-30] MEDS ORDERED: OXYTOCIN/NORMAL SALINE 20 UNIT/1,000 ML RTUINJ IV SCH (13:15)
[2019-07-30] MEDS ORDERED: MISOPROSTOL 0.2 MG TABLET ONE (13:55)
[2019-07-30] MEDS ORDERED: OXYTOCIN 10 UNIT/ML VIAL ONE (13:55)
[2019-07-30] MEDS ORDERED: LIDOCAINE 1% INJ-PF (10 MG/ML) 30 ML SDV ONE (13:56)
[2019-07-30] MEDS ORDERED: OXYTOCIN/NORMAL SALINE 20 UNIT/1,000 ML RTUINJ ONE (13:56)
[2019-07-30 13:58] LABS: CHLAM PCR NOT DETECTED (NOT DETECT)
[2019-07-30] MEDS: PENICILLIN G POTASSIUM 2,500,000 UNIT in DEXTROSE 5%-WATER 50 ML IV SCH ×2 (16:03→19:53)
[2019-07-31] MEDS ORDERED: PENICILLIN G-K 5 MILLION UNIT VIAL ONE (00:02)
[2019-07-31] MEDS: PENICILLIN G POTASSIUM 2,500,000 UNIT in DEXTROSE 5%-WATER 50 ML IV SCH (00:10)
[2019-07-31] MEDS ORDERED: PROMETHAZINE HCL 25 MG SUPP.RECT PR PRN (00:34)
[2019-07-31] MEDS ORDERED: PSEUDOEPHEDRINE HCL 30 MG TABLET PO PRN (00:34)
[2019-07-31] MEDS ORDERED: PROMETHAZINE HCL INJ 25 MG/1 ML VIAL IV PRN (00:34)
[2019-07-31] MEDS ORDERED: ACETAMINOPHEN 650 MG SUPP.RECT PR PRN (00:34)
[2019-07-31] MEDS ORDERED: BENZOCAINE/MENTHOL AEROSOL SPRAY 56 ML TOP PRN (00:34)
[2019-07-31] MEDS ORDERED: MEASLES,MUMPS&RUBELLA VACC/PF 0.5 ML VIAL SUBCUT PRN (00:34)
[2019-07-31] MEDS ORDERED: PROMETHAZINE HCL 25 MG TABLET PO PRN (00:34)
[2019-07-31] MEDS ORDERED: OXYTOCIN/NORMAL SALINE 20 UNIT/1,000 ML RTUINJ IV PRN (00:34)
[2019-07-31] MEDS ORDERED: NA PHOS,M-B/NA PHOS,DI-BA (ADULT) 133 ML ENEMA PR PRN (00:34)
[2019-07-31] MEDS ORDERED: ZOLPIDEM TARTRATE 5 MG TABLET PO PRN (00:34)
[2019-07-31] MEDS ORDERED: MAGNESIUM HYDROXIDE SUSP 30 ML UDCUP PO PRN (00:34)
[2019-07-31] MEDS ORDERED: DIPHENHYDRAMINE HCL 25 MG CAPSULE PO PRN (00:34)
[2019-07-31] MEDS ORDERED: DIBUCAINE 1% OINTMENT 28 GM TP PRN (00:34)
[2019-07-31] MEDS ORDERED: ACETAMINOPHEN WITH CODEINE #3 TABLET PO PRN ×2 (00:34)
[2019-07-31] MEDS ORDERED: DIPH/PERTUSS(ACELL)/TETANUS VAC/PF 0.5 ML SYR (>=10YO) IM PRN (00:34)
[2019-07-31] MEDS ORDERED: GLYCERIN/WITCH HAZEL LEAF 1 EACH MED..WIPE TP PRN (00:34)
[2019-07-31] MEDS ORDERED: IBUPROFEN 800 MG TABLET ONE (01:36)
[2019-07-31] MEDS: IBUPROFEN 800 MG TABLET PO SCH ×4 (01:38→21:51)
--- NOTE | 2019-07-31 02:31 | Warning Signs in Babies ---
VOD Warning Signs Datetime Report Generated by [facility]: 07/31/2019 02:31 VOD#608 -Warning Signs in Babies: Viewed with Parent(s)/Family (07/30/2019 11:18:Svitlana Aguirre RN)
--- NOTE | 2019-07-31 02:32 | Delivery Summary ---
Del Sum A-C Datetime Report Generated by CPN: 07/31/2019 02:32 DELIVERY PERSONNEL DELIVERY PERSONNEL: [id number] Delivery Doctor:: Zahra Dunbar MD Labor and Delivery Nurse:: Svitlana Aguirre RN Labor and Delivery Nurse:: Aleksandra Chaudhari RN Nursery Nurse:: Elvi Plunkett RN Supervisor Fertilizer Processing/SEW ON OPERATOR: Elaina Zhang, DIAMOND SAWER MATERNAL INFORMATION Delivery Anesthesia: None Medications After Delivery: Pitocin Bolus-Please Comment Meds After Delivery Comment: 20 units pitocin after placent delivery Estimated Blood Loss (ml): 200 Delivery QBL: 100 Maternal Complications: Premature Rupture of Membranes Provider Comments: Called to patients room as she was complete, +3 and with urge to push. Patient pushed through one contraction and delivered over an intact perineum. Cord doubly clamped and cut and infant placed skin to skin with mother. Both infant and Mother stable. LABOR SUMMARY EDC: 08/25/2019 00:00 No. Babies in Womb: 1 Attempted: No Labor Anesthesia: None LABOR INFORMATION Reason for Induction: Not Applicable Onset of Labor: 07/30/2019 22:42 Complete Dilatation: 07/31/2019 00:15 Oxytocin: Augmentation Group B Beta Strep: unknown Antibiotics # of Doses: 4 Antibiotics Time of Last Dose: 0010 Name of Antibiotic Given: PCN Steroids Given: Partial Course; < 24 Hours before Delivery Reason Steroids Not Administered: Not Applicable MEMBRANES Membranes Rupture Method: Spontaneous Rupture of Membranes: 07/30/2019 00:00 Length of Rupture (hr): 24.30 Amniotic Fluid Color: Clear Amniotic Fluid Amount: Small Amniotic Fluid Odor: Normal STAGES OF LABOR Stage 1 hr: 1 Stage 1 min: 33 Stage 2 hr: 0 Stage 2 min: 3 Stage 3 hr: 0 Stage 3 min: 5 Total Time in Labor hr: 1 Total Time in Labor min: 41 VAGINAL DELIVERY Episiotomy: None Laceration #1: None Laceration Extension #1: N/A Laceration Repair: Not Applicable Sponge Count Correct: Yes Sharps Count Correct: Yes CSECTION DELIVERY Primary Indication: N/A Secondary Indication: N/A CSection Urgency: N/A CSection Incidence: N/A Labor: N/A Elective: N/A Uterine Closure: N/A BABY A INFORMATION Infant Delivery Date/Time: 07/31/2019 00:18 Method of Delivery: Vaginal Born in Route : No : N/A Forceps: N/A Vacuum Extraction: N/A Shoulder Dystocia : No PRESENTATION/POSITION BABY A Presentation: Cephalic Cephalic Presentation: Vertex Vertex Position: Right Occipital Anterior Breech Presentation: N/A PLACENTA INFORMATION BABY A Placenta Delivery Time : 07/31/2019 00:23 Placenta Method of Delivery: Spontaneous Placenta Status: Delivered SCORES BABY A Heart Rate 1 min: >100 bpm Resp Effort 1 min: Good Cry Reflex Irritability 1 min: Cough or Sneeze or Pulls Away Muscle Tone 1 min: Active Motion Color 1 min: Body [place], Extremities Blue Resuscitation Effort 1 min: Tactile Stimulation SCORE 1 MIN: 9 Heart Rate 5 min: >100 bpm Resp Effort 5 min: Good Cry Reflex Irritability 5 min: Cough or Sneeze or Pulls Away Muscle Tone 5 min: Active Motion Color 5 min: Body [place], Extremities Blue SCORE 5 MIN: 9 INFORMATION BABY A Gestational Age at Delivery: 36.3 Gestational Status: Late - 34- 36.6 Weeks Infant Outcome : Liveborn Condition : Stable Sex: Male IDENTIFICATION BABY A Verification Date/Time: 07/31/2019 00:29 ID Band Number: [id number] Mother's Name Verified: Yes Infant RN Verifying : K. Watson, RN Additional Verifying Personnel: B. Ring, RN WEIGHT/LENGTH BABY A Birthweight (gm): 2300 Infant Weight (lb): 5 Infant Weight (oz): 1 Length (in): 18.50 Infant Length (cm): 46.99 CORD INFORMATION BABY A No. Cord Vessels: 3 Nuchal Cord : N/A Cord Blood Taken: Yes-For Eval (Mom's Blood Type - or O+) Suction: None ASSESSMENT BABY A Complications: Multiple Variable Decels Physical Findings at Delivery: Within Normal Limits Physical Findings- Other: see initial nursery assessment Respirations: Appears Normal Skin to Skin: Yes Skin to Skin Time (min): 60 Miner Placer/ALS Called : No Infant Care By: A. , RN Transferred To: Remains with Mother BABY B INFORMATION : N/A SIGNATURES Signature: with User ID: [email or web address] : with User ID: [email or web address]
[2019-07-31] MEDS: FERROUS SULFATE 325 MG TABLET PO SCH ×2 (09:21→17:17)
[2019-07-31] MEDS: PRENATAL VITAMIN W DHA CAPSULE PO SCH (09:22)
[2019-07-31] MEDS: DOCUSATE SODIUM 100 MG CAPSULE PO SCH ×2 (09:22→17:17)
[2019-07-31] MEDS: SENNOSIDES/DOCUSATE 8.6-50 MG 1 EACH TABLET PO SCH (09:22)
[2019-07-31] MEDS: FAMOTIDINE 20 MG TABLET PO SCH ×2 (17:56→21:58)
[2019-08-01] MEDS: IBUPROFEN 800 MG TABLET PO SCH (05:28)
[2019-08-01 06:50] LABS: HEMATOCRIT 29.3 % (36.0-47.0); HEMOGLOBIN 10.1 g/dL (12.0-15.5); MEAN CORPUSCULAR HEMOGLOBIN 29.2 pg (27.0-33.4); MEAN CORPUSCULAR HGB CONC 34.5 g/dL (32.0-36.0); MEAN CORPUSCULAR VOLUME 85 fl (80-97); PLATELET COUNT 309 10^3/uL (150-450); RED BLOOD COUNT 3.46 10^6/uL (3.72-5.28); RED CELL DISTRIBUTION WIDTH 14.5 % (11.5-14.0); WHITE BLOOD COUNT 12.3 10^3/uL (4.0-10.5)
[2019-08-01 07:49] VITALS: BP 101/62
[2019-08-01] MEDS: FAMOTIDINE 20 MG TABLET PO SCH (09:30)
[2019-08-01] MEDS: DOCUSATE SODIUM 100 MG CAPSULE PO SCH (09:30)
[2019-08-01] MEDS: FERROUS SULFATE 325 MG TABLET PO SCH (09:30)
[2019-08-01] MEDS: PRENATAL VITAMIN W DHA CAPSULE PO SCH (09:31)
[2019-08-01] MEDS: SENNOSIDES/DOCUSATE 8.6-50 MG 1 EACH TABLET PO SCH (09:31)
--- NOTE | 2019-08-01 10:20 | PDOC DISCHARGE SUMMARY ---
Impression - Admit/DC Date/PCP Admission Date/Primary Care Provider: 07/30/19 11:46 MANPREET MAXWELL MD Discharge Date: 08/01/19 - PP Day #1, pt desires to go home today. Baby is unable to be discharged, but pt wants to go home to take care of her other toddler. PLans Depo Provera prior to d/c home today. Pt also needs Rhogam. A negative/ Rubella immune, bottlefeeding - Discharge Diagnosis (1) Anemia due to acute blood loss Is this a current diagnosis for this admission?: Yes (2) Obstetric labial laceration, delivered, current hospitalization Is this a current diagnosis for this admission?: Yes (3) Vaginal delivery Is this a current diagnosis for this admission?: Yes - Additional Information Resuscitation Status: Full Code Discharge Diet: As Tolerated, Regular Discharge Activity: Activity As Tolerated, No Lifting Over 10 Pounds, Pelvic Rest Referrals: MANPREET MAXWELL MD [Primary Care Provider] - Prescriptions: Ibuprofen [Motrin 800 mg Tablet] 800 mg PO Q8 #60 tablet Home Medications: Ibuprofen [Motrin 800 mg Tablet] 800 mg PO Q8 #60 tablet 08/01/19 Vit/Dha [ Multi + Dha Capsule] 1 cap PO DAILY capsule 08/01/19 HPI Reason(s) for Admission: Onset of Labor Procedures: Ultrasound Intrapartum Procedure(s): Spontaneous Vaginal Delivery Hospital Course Hospital Course: routine PP course Results Laboratory Results: WBC 12.3 10^3/uL (4.0-10.5) H 08/01/19 06:32 RBC 3.46 10^6/uL (3.72-5.28) L 08/01/19 06:32 Hgb 10.1 g/dL (12.0-15.5) L 08/01/19 06:32 Hct 29.3 % (36.0-47.0) L 08/01/19 06:32 MCV 85 fl (80-97) 08/01/19 06:32 MCH 29.2 pg (27.0-33.4) 08/01/19 06:32 MCHC 34.5 g/dL (32.0-36.0) 08/01/19 06:32 RDW 14.5 % (11.5-14.0) H 08/01/19 06:32 Plt Count 309 10^3/uL (150-450) 08/01/19 06:32 Lymph % (Auto) 27.0 % (13-45) 07/30/19 12:19 [place] % (Auto) 6.7 % (3-13) 07/30/19 12:19 Eos % (Auto) 0.8 % (0-6) 07/30/19 12:19 Baso % (Auto) 0.1 % (0-2) 07/30/19 12:19 Absolute Neuts (auto) 5.1 10^3/uL (1.7-8.2) 07/30/19 12:19 Absolute Lymphs (auto) 2.1 10^3/uL (0.5-4.7) 07/30/19 12:19 Absolute Monos (auto) 0.5 10^3/uL (0.1-1.4) 07/30/19 12:19 Absolute Eos (auto) 0.1 10^3/uL (0.0-0.6) 07/30/19 12:19 Absolute Basos (auto) 0.0 10^3/uL (0.0-0.2) 07/30/19 12:19 Seg Neutrophils % 65.4 % (42-78) 07/30/19 12:19 Urine Color YELLOW 07/30/19 11:04 Urine Appearance CLOUDY 07/30/19 11:04 Urine pH 7.0 (5.0-9.0) 07/30/19 11:04 Ur Specific [place] 1.010 07/30/19 11:04 Urine Protein 30 mg/dL (NEGATIVE) H 07/30/19 11:04 Urine Glucose (UA) NEGATIVE mg/dL (NEGATIVE) 07/30/19 11:04 Urine Ketones NEGATIVE mg/dL (NEGATIVE) 07/30/19 11:04 Urine Blood NEGATIVE (NEGATIVE) 07/30/19 11:04 Urine Nitrite POSITIVE (NEGATIVE) H 07/30/19 11:04 Urine Bilirubin NEGATIVE (NEGATIVE) 07/30/19 11:04 Urine Urobilinogen NEGATIVE mg/dL (<2.0) 07/30/19 11:04 Ur Leukocyte Esterase MODERATE (NEGATIVE) H 07/30/19 11:04 Urine WBC (Auto) 69 /HPF 07/30/19 11:04 Urine RBC (Auto) 7 /HPF 07/30/19 11:04 Urine Bacteria (Auto) TRACE /HPF 07/30/19 11:04 Squamous Epi Cells Auto 5 /HPF 07/30/19 11:04 Amorphous Sediment Auto TRACE /HPF 07/30/19 11:04 Urine Mucus (Auto) OCC /LPF 07/30/19 11:04 U Trichomonas (Auto) NO /HPF 07/30/19 11:04 Urine Ascorbic Acid NEGATIVE (NEGATIVE) 07/30/19 11:04 Membranes Rupture POSITIVE (NEGATIVE) H 07/30/19 11:15 Urine Opiates Screen NEGATIVE 07/30/19 11:04 Urine Methadone Screen NEGATIVE 07/30/19 11:04 Ur Barbiturates Screen NEGATIVE 07/30/19 11:04 Ur Phencyclidine Scrn NEGATIVE 07/30/19 11:04 Ur Amphetamines Screen NEGATIVE 07/30/19 11:04 U Benzodiazepines Scrn NEGATIVE 07/30/19 11:04 Urine Cocaine Screen NEGATIVE 07/30/19 11:04 U Marijuana (THC) Screen UNCONFIRMED POSITIVE 07/30/19 11:04 RPR NONREACTIVE (NONREACTIVE) 07/30/19 12:19 Chlamydia DNA (PCR) NOT DETECTED (NOT DETECT) 07/30/19 12:18 N.gonorrhoeae DNA (PCR) NOT DETECTED (NOT DETECT) 07/30/19 12:18 Blood Type A NEGATIVE 08/01/19 06:32 Antibody Screen POSITIVE 07/30/19 12:19 Antibody Identification RHOGAM INDUCED ANTI-D 07/30/19 12:19 Screen NEGATIVE 08/01/19 06:32 Plan Health Concerns: Desires Depo Provera prior to discharge, needs Rhogam Plan of Treatment: d/c to home, f/u with [facility] or Ob care provider in 4 wks Time Spent: Less than 30 Minutes
[2019-08-01] MEDS ORDERED: MEDROXYPROGESTERONE ACET INJ 150 MG/1 ML VIAL IM ONE (10:40)
== END 2019-08-01 11:33 | disposition home or self-care (01) | DRG 806 ==
LOC: LC 11:01 → LR 11:46 → 2S 07-31 02:38
PROVIDERS: ADMIT Obstetrics & Gynecology; ATTEND Obstetrics & Gynecology
PROC: 10E0XZZ Delivery of Products of Conception, External Approach (ICD-10-PCS; principal; 2019-07-30)
DX: O42.913 Preterm premature rupture of membranes, unspecified as to length of time between rupture and onset of labor, third trimester (principal); D62 Acute posthemorrhagic anemia; Z37.0 Single live birth; O76 Abnormality in fetal heart rate and rhythm complicating labor and delivery; O99.02 Anemia complicating childbirth; O70.0 First degree perineal laceration during delivery; Z3A.36 36 weeks gestation of pregnancy; Z87.891 Personal history of nicotine dependence
CPT/HCPCS: 36415; 80307; 80349; 81001; 84112; 85025; 85027; 85461; 86592; 86695; 86696; 86850; 86870; 86900; 86901; 87077; 87081; 87491; 87591; 88307; 96372; G0480; J0702; J1050; J2540; J2590; J2790; J3490

== ENCOUNTER 2019-08-09 15:55 | Emergency (ER) | payer MEDICAID, OTHER ==
[2019-08-09 16:00] VITALS: BP 133/76
[2019-08-09] MEDS ORDERED: MUPIROCIN CALCIUM 2% CREAM 15 GM TP ONE (16:14)
--- NOTE | 2019-08-09 16:15 | ER Document Report ---
HPI - HPI Patient complains to provider of: abdominal abscess Time Seen by Provider: 08/09/19 16:00 Onset: This morning Onset/Duration: Sudden Quality of pain: No pain Context: 24-year-old female presents emergency department with an abscess to the right side of her abdomen. Reports she has had it for over a week. She recently had a baby July 31. She reports that the doctor did look at it and said it was cellulitis. She reports they did not order her any antibiotics. She reports th is morning when she was in the shower it popped and drained she reports it feels much better now. Circular opening noted to the right side of her abdomen. No erythema no warmth no pustule no induration no fluctuance noted. She denies fever vomiting diarrhea. She reports her boyfriend has MRSA and he told her to come. - REPRODUCTIVE Reproductive: DENIES: : Past Medical History - General Information source: Patient Last Menstrual Period: 07/31/19 - Social History Smoking Status: Unknown if Ever Smoked Lives with: Family Family History: Reviewed & Not Pertinent Patient has suicidal ideation: No Patient has homicidal ideation: No Pulmonary Medical History: Reports: Hx Asthma Renal/ Medical History: Reports: Hx Pelvic Inflammatory Disease. Denies: Hx Peritoneal Dialysis GI Medical History: Reports: Hx Crohn's Disease Surgical Hx: Negative - Immunizations Immunizations up to date: Yes Hx Diphtheria, Pertussis, Tetanus Vaccination: Yes Vertical Provider Document - CONSTITUTIONAL Agree With Documented VS: Yes Exam Limitations: No Limitations General Appearance: WD/WN, No Apparent Distress - INFECTION CONTROL TRAVEL OUTSIDE OF THE [place] IN LAST 30 DAYS: No - HEENT HEENT: Atraumatic, Normocephalic. negative: Conjuctival Injection - NECK Neck: Normal Inspection, Supple. negative: Lymphadenopathy-Left, Lymphadenopathy-Right - RESPIRATORY Respiratory: No Respiratory Distress - CARDIOVASCULAR Cardiovascular: Regular Rate - GI/ABDOMEN Gastrointestinal: Abdomen Soft, Abdomen Non-Tender - MUSCULOSKELETAL/EXTREMETIES Musculoskeletal/Extremeties: MICHELL DICKENS - NEURO Level of Consciousness: Awake, Alert, Appropriate Motor/Sensory: No Motor Deficit - DERM Integumentary: Warm, Dry, Abscess - Spontaneously ruptured Adult Front & Back Diagram: 1 - Small circular opening where patient reports popped and drained while she was in the shower with no erythema no induration no fluctuance surrounding the area. Course - Re-evaluation Re-evalutation: 08/09/19 16:18 24-year-old female presents with a spontaneous drainage of an abscess on her abdomen. She reports the site feels much better. The area was cleaned, topical antibiotic was applied culture was sent. Patient was instructed on signs and symptoms of infection and instructed to return here immediately for any concerns she verbalized understand all instructions. - Vital Signs Vital signs: Temp Pulse Resp BP Pulse Ox 98.2 F 68 20 133/76 H 100 08/09/19 15:59 08/09/19 15:59 08/09/19 15:59 08/09/19 15:59 08/09/19 15:59 Discharge - Discharge Clinical Impression: Abdominal abscess Condition: Stable Disposition: HOME, SELF-CARE Instructions: Abscess ([facility]), Bactroban Ointment ([facility]) Additional Instructions: *You have been treated for an abscess that drained *Apply ointment three times a day to the site *Monitor the site for signs of infection such as pain, redness, swelling, warmth *Wash the site twice daily as discussed with antibacterial soap *Follow up with a primary care provider within one week *Return to ED for signs of infection, worsening condition, changes, needs Referrals: MANPREET MAXWELL MD [Primary Care Provider] - Follow up in 3-5 days
== END 2019-08-09 16:42 | disposition home or self-care (01) ==
LOC: ER 15:55
DX: L02.211 Cutaneous abscess of abdominal wall (principal); O99.89 Other specified diseases and conditions complicating pregnancy, childbirth and the puerperium; Z98.890 Other specified postprocedural states; J45.909 Unspecified asthma, uncomplicated
CPT/HCPCS: 99283; 87070; 87205; 87075; 87077; 87186; J3490

== ENCOUNTER 2019-12-28 12:29 | Emergency (ER) | payer MEDICAID, OTHER ==
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
--- NOTE | 2019-12-28 14:21 | RADIOLOGY REPORT (SQ) ---
EXAM DESCRIPTION: NOSE/NASAL BONES IMAGES COMPLETED DATE/TIME: 12/28/2019 2:02 pm REASON FOR STUDY: pain and injury COMPARISON: None. NUMBER OF VIEWS: Three views. TECHNIQUE: Images of the facial bones acquired. LIMITATIONS: None. FINDINGS: ORBITS: No fracture or radiopaque foreign body. SINUSES: No opacification or air-fluid level. FACIAL BONES: No fracture. OTHER: No other finding. IMPRESSION: No nasal fracture. TECHNICAL DOCUMENTATION: JOB ID: [id number] 2010 [employer]- All Rights Reserved Reading location - IP/workstation name: [email or web address]-
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
[2019-12-28] MEDS ORDERED: IBUPROFEN 600 MG TABLET PO ONE (15:05)
[2019-12-28 15:38] VITALS: BP 139/79
== END 2019-12-28 15:37 | disposition home or self-care (01) ==
LOC: ER 12:29
PROC: 0H97XZZ Drainage of Abdomen Skin, External Approach (ICD-10-PCS; principal; 2019-12-28)
DX: L02.211 Cutaneous abscess of abdominal wall (principal); R10.31 Right lower quadrant pain; R21 Rash and other nonspecific skin eruption; J34.89 Other specified disorders of nose and nasal sinuses; Y09 Assault by unspecified means; Z88.8 Allergy status to other drugs, medicaments and biological substances; J45.909 Unspecified asthma, uncomplicated
CPT/HCPCS: 70160; 99283

== ENCOUNTER 2019-12-31 10:49 | Emergency (ER) | payer OTHER, MEDICAID ==
[2019-12-31 11:02] VITALS: BP 135/79
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
== END 2019-12-31 11:25 | disposition home or self-care (01) ==
LOC: ER 10:49
DX: S16.1XXA Strain of muscle, fascia and tendon at neck level, initial encounter (principal); M79.18 Myalgia, other site; V49.40XA Driver injured in collision with unspecified motor vehicles in traffic accident, initial encounter; J45.909 Unspecified asthma, uncomplicated; Z87.891 Personal history of nicotine dependence; Z88.6 Allergy status to analgesic agent; Z88.5 Allergy status to narcotic agent
CPT/HCPCS: 99283